=== PATIENT | female | born 1950 | race African-American/Black ===

== ENCOUNTER 2021-07-02 14:59 | Emergency (ER) | payer MEDICARE, SELFPAY ==
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
[2021-07-02 15:43] VITALS: BP 138/78; PULSE 99; RESP 18; TEMP 36.3; O2SAT 98
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
[2021-07-02 17:14] VITALS: BP 121/78; PULSE 86; RESP 12; O2SAT 98
[2021-07-02 17:24] VITALS: BP 121/78; PULSE 77; RESP 12; O2SAT 98
[2021-07-02] MEDS: ACETAMINOPHEN 500 MG TABLET 1000 MG PO (17:31)
== END 2021-07-02 17:40 | disposition home or self-care (01) ==
LOC: ANHED 17:32
PROVIDERS: Emergency Provider Emergency Medicine; PCP Emergency Medicine
DX: R42 Dizziness and giddiness (principal); S16.1XXA Strain of muscle, fascia and tendon at neck level, initial encounter; S39.92XA Unspecified injury of lower back, initial encounter; M47.816 Spondylosis without myelopathy or radiculopathy, lumbar region; V49.40XA Driver injured in collision with unspecified motor vehicles in traffic accident, initial encounter
CPT/HCPCS: 70450; 71046; 72100; 72125; 99284; A9270

== ENCOUNTER 2021-07-24 11:59 | Emergency (ER) | payer OTHER, SELFPAY ==
[2021-07-24] VITALS (9 sets, daily range): BP systolic 128–145; BP diastolic 84–92; PULSE 62–87; RESP 13–24; TEMP 36.7; O2SAT 94–100
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
--- NOTE | ~2021-07-24 | CT_ITS ---
EXAMINATION: CT abdomen pelvis w con DATE: 07/24/2021 15:05 INDICATION: Left abdominal pain and bloating TECHNIQUE: Computed tomography (CT) of the abdomen and pelvis was performed with 100 cc Omnipaque 350 intravenous contrast. The dose-length product was 1216.74 mGy-cm. Automated exposure control and ite rative reconstruction technique were employed. COMPARISON: None. FINDINGS: Lung bases are unremarkable. Heart size is normal. No significant pleural or pericardial ef fusion. Small hiatal hernia. No significant vascular abnormality. No lymphadenopathy. There uterine f ibroids with probable mild endometrial thickening. No abnormal pelvic masses or fluid collections. No nobstructive bowel gas pattern. There are bilateral renal cysts. There are patchy areas of hypoperfusion of the kidneys. Cannot exclu de early pyelonephritis. Clinically correlate. Fatty infiltration with cholecystectomy clips. The spl een, pancreas, adrenal glands are unremarkable. There is layering milk of calcium and a left upper po le renal cyst. No free air or free fluid. No focal lytic or blastic lesions. Mild lumbar spondylosis. Symmetric osteoarthritis of the hips. IMPRESSION: 1. Patchy hypoperfusion of the kidneys, suspicious for early pyelonephritis. Clinically correlate. 2: Probable mild endometrial thickening. Multiple uterine fibroids. Consider correlation with ultraso und on a nonemergent basis. Reviewed, dictated and finalized at location A. ERN PAINTER IMPRESSION: 1. Patchy hypoperfusion of the kidneys, suspicious for early pyelonephritis. Cl inically correlate. 2: Probable mild endometrial thickening. Multiple uterine fibroids. Consider co rrelation with ultrasound on a nonemergent basis.
--- NOTE | 2021-07-24 13:29 | PC.NURSE ---
Dr. Valenzuela at bedside for pt assessment.
--- NOTE | 2021-07-24 13:37 | ECG_ITS ---
Measurements Intervals Home Rate: 65 P: 41 IL: 196 QRS: -11 QRSD: 99 T: 28 QT: 396 QTc: 412 Interpretive Statements SINUS RHYTHM NORMAL ECG Electronically Signed On 07-24-2021 14:09:21 INSOLE ROUNDER by Earl Padilla D.O.
[2021-07-24 14:02] LABS: Basophils Absolute Auto 0.1 K/mm3 (0.0-0.1); Basophils Percent Auto 0.9 % (0.2-1.2); Eosinophils Absolute Auto 0.2 K/mm3 (0-0.3); Eosinophils Percent Auto 2.2 % (0-4.4); Hematocrit 38.2 % (37.0-47.0); Hemoglobin 12.7 g/dL (12.0-15.0); Immature Granulocyte Absolute 0.01 K/mm3 (0.00-0.031); Immature Granulocyte Percent A 0.1 % (0-0.5); Lymphocytes Absolute Auto 3.63 K/mm3 (0.9-3.2); Lymphocytes Percent Auto 53.9 % (18.3-44.2); Mean Corpuscular HGB Conc 33.2 g/dl (32-36); Mean Corpuscular Hemoglobin 30.3 pg (26-34); Mean Corpuscular Volume 91.2 fl (80-100); Monocytes Absolute Auto 0.4 K/mm3 (0.1-0.6); Monocytes Percent Auto 6.1 % (2.6-8.5); Neutrophils Absolute Auto 2.5 K/mm3 (1.3-6.7); Neutrophils Percent Auto 36.8 % (45.5-73.1); Platelet Count Result 231 k/mm3 (150-375); Red Blood Count 4.19 M/mm3 (4.2-5.4); Red Cell Distribution Width 13.1 % (11.5-14.5); White Blood Count 6.7 K/mm3 (4.5-10.0)
[2021-07-24 14:08] LABS: Add Urine Microscopic? YES; Appearance Urine Clear (Clear); Bilirubin Urine Negative (Negative); Blood Urine Negative (Negative); Color Urine Straw (Yellow); Glucose Urine UA Negative (Negative); Ketones Urine Negative (Negative); Leukocyte Esterase Ur Trace LEU/UL (Negative); Mucus Urine Rare /lpf; Nitrate Urine Negative (Negative); Protein Urine Negative (Negative); RBC Urine 0-2 /hpf (0-2); Specific Grav Ur 1.008 (1.001-1.035); Urobilinogen Urine Negative mg/dL (<2.0)
[2021-07-24 14:11] LABS: Prothrombin Time 13.5 Seconds (11.1-14.7)
[2021-07-24 14:12] LABS: Partial Thromboplastin Time 27.6 SECONDS (22.3-36.8)
[2021-07-24 14:14] LABS: D Dimer 0.47 ug/mL (<0.48)
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
[2021-07-24 14:41] LABS: Alanine Aminotransferase 18 U/L (4-35); Albumin Level 4.6 g/dL (3.5-5.1); Alkaline Phosphatase 181 U/L (38-126); Anion Gap 5 mmol/L (8-16); Aspartate Amino Transferase 27 U/L (14-36); Bilirubin,Total 0.3 mg/dL (0.2-1.3); Blood Urea Nitrogen 7 mg/dL (7-17); Carbon Dioxide 29 mmol/L (22-30); Chloride 104 mmol/L (98-107); Estimated CRCL calculation 65 ml/min; Estimated Glomerular Filt Rate > 60; Glucose 91 mg/dL (65-110); Lipase 60 U/L (23-300); Potassium 3.7 mmol/L (3.4-5.0); Sodium 138 mmol/L (137-145)
--- NOTE | 2021-07-24 14:58 | PC.NURSE ---
Pt to CT.
--- NOTE | 2021-07-24 14:58 | PC.NURSE ---
Pt to CT.
--- NOTE | 2021-07-24 15:16 | PC.NURSE ---
Dr. Valenzuela at bedside to discuss results and treatment plan with pt.
== END 2021-07-24 15:36 | disposition home or self-care (01) ==
PROVIDERS: Emergency Provider General Practice; PCP Emergency Medicine
DX: N12 Tubulo-interstitial nephritis, not specified as acute or chronic (principal); R93.89 Abnormal findings on diagnostic imaging of other specified body structures; M54.9 Dorsalgia, unspecified
CPT/HCPCS: 36415; 71046; 74177; 80053; 81001; 83690; 83735; 85025; 85380; 85610; 85730; 87086; 93005; 99284; Q9967

== ENCOUNTER 2021-10-20 13:08 | Outpatient (CLI) | payer OTHER, SELFPAY ==
[2021-10-20 14:24] LABS: Hemoglobin 12.7 g/dL (12.0-15.0); Mean Corpuscular HGB Conc 32.6 g/dl (32-36); Mean Platelet Volume 12.2 fl (7.4-10.4); Platelet Count Result 236 k/mm3 (150-375); Red Blood Count 4.24 M/mm3 (4.2-5.4); Red Cell Distribution Width 13.3 % (11.5-14.5); White Blood Count 6.5 K/mm3 (4.5-10.0)
== END 2021-10-20 13:09 | disposition home or self-care (01) ==
PROVIDERS: Visit Provider Student in an Organized Health Care Education/Training Program
DX: Z01.818 Encounter for other preprocedural examination (principal); N85.2 Hypertrophy of uterus
CPT/HCPCS: 36415; 85027; 86850; 86900; 86901

== ENCOUNTER 2021-10-23 02:42 | Day surgery (SDC) | payer OTHER, SELFPAY ==
--- NOTE | 2021-10-17 09:51 | PC.NURSE ---
Report to the Outpatient Waiting Room, entrance under the green pavilion located off [facility], at time __1230 on date __10/23/21 . OR Time: _2:30 PM . - You and your visitor will be asked a series of questions to screen for COVID 19 for your protection. - A mask is required within the hospital. Preoperative COVID Testing Requirements: No COVID Test needed if: (proof is required; if not received patient will have Rapid Test prior to entry) - Patient has received COVID Vaccine at least 14 days prior to procedure date or - Patient has positive COVID test result within last 90 days of surgery date. COVID Test needed if above criteria is not met If not COVID vaccinated a COVID test must be conducted within 72 hours of surgery and patient is asked to isolate self from time of testing until procedure. You will go to the [facility] for your COVID testing. The [employer] [facility] site is located at the corner of [address] [facility]. You will only be called if COVID results are positive and your surgeon may reschedule your elective surgery date. Patients may have clear liquids (water, carbonated beverages, clear teas, apple juice) until 3 hours prior to surgery with a maximum of 20 ounces. - No food from midnight until time of surgery Take the following medications with a SIP of water the morning of surgery: _NONE Medications to discontinue per physician ALL VITAMINS AND SUPPLEMENTS 3 DAYS PRE OP Date to take last dose___10/19/21 Please no make-up, nail icelandic, hairspray, perfume, deodorant, or body powder the day of surgery. No jewelry (including any body piercings) or valuables the day of surgery, leave them at home. Please take a shower or bath the night before, or the morning of, surgery with an antibacterial soap. Wear comfortable, loose fitting clothing. Children are encouraged to wear pajamas. - Jewelry must be removed prior to entering the operating room. Rings and piercings that are not removed may be cut off. - The hospital will not accept responsibility for valuables. - Please leave all valuables, including medications, at home the day of surgery. If you are going home after surgery, a licensed screw driver operator must drive you home. - NO public transportation without another adult. - We recommend that an adult stay with you for 24 hours following discharge. - We also recommend that you do not drive, make important decision, drink alcoholic beverages, or take any drugs that were not prescribed by your health care provider for at least 24 hours after your discharge time. One visitor will be allowed to accompany the patient into the hospital. Patients visitor will be instructed to remain with patient at all times or leave the building. We will allow the visitor to come back to the postoperative area when patient is ready. Follow any additional instructions given to you from your surgeon. Telephone instructions given to __PATIENT and asked if any additional questions and then verbalized understanding. Patient advised to call surgeon office or pre surgery nurse liaison [phone] if any additional questions.
[2021-10-17 10:02] VITALS: BMI 37.9
--- NOTE | 2021-10-22 16:23 | PM.IMHP ---
H&P: HPI History of Present Illness Date/Time: 10/22/21 16:23 Chief Complaint: uterine fibroids postmenopausal bleeding Narrative: 70 yo F who presents for robotic TLH/BSO for uterine fibroids. Pt initially presented to the ED for an episode of dizziness. Pt ahd a CT scan which had an incidental finding of uterine fibroids. Upon questioning pt did reports some postmenopausal spotting and abdominal fullness, bloating and pressure. Pt elects for surgical management of uterine fibroids. Review of Systems Cardiovascular: Cardiovascular: Denies chest pain, Denies leg edema, Denies palpitations, Denies dyspnea and Denies dyspnea on exertion Respiratory: Respiratory: Denies cough, Denies dyspnea and Denies dyspnea on exertion Gastrointestinal: Gastrointestinal: Denies abdominal pain, Denies constipation, Denies diarrhea, Denies nausea and Denies vomiting Genitourinary: Genitourinary: Denies hematuria, Denies urinary frequency, Denies dysuria, Denies pelvic pain, Denies urinary incontinence and Denies vaginal discharge Neurologic: Reports system reviewed and no additional complaints, except as documented Psychiatric: Psychiatric: Reports no additional psychiatric complaints Endocrine: Endocrine: Denies palpitations PMFSH Past Medical History Medical History (Updated 10/22/21 @ 16:26 by Mick Tavarez MD) Patient denies significant medical history Surgical History Surgical History (Updated 07/24/21 @ 14:25 by Morelia Valenzuela MD) Hx of cholecystectomy Social History Social History (Updated 07/02/21 @ 16:50 by Jean Cornelius DO) Smoking status: Never smoker Spiritual care concerns: No Meds Home Medications and Allergies Home Medications Medication Instructions Recorded Confirmed Type Lacto.acidophilus-Bif.animalis 1 cap PO DAILY 10/17/21 10/17/21 History [Daily Probiotic] acetaminophen [Tylenol Extra 500 mg PO Q6H PRN 10/17/21 10/17/21 History Strength] cholecalciferol (vitamin D3) 1,250 mcg PO WEEKLY 10/17/21 10/17/21 History naproxen 500 mg PO PRN PRN 10/17/21 10/17/21 History simvastatin 20 mg PO HS 10/17/21 10/17/21 History Allergies Allergy/AdvReac Type Severity Reaction Status Date / Time Penicillins AdvReac Anaphylaxis Verified 10/17/21 09:36 Exam Const: General: no acute distress Eyes: EOM: EOMs intact bilaterally Neck: Neck: supple Thyroid: thyroid normal Chest: Breast/axilla inspection: normal inspection of the breasts Breast/axilla palpation: normal palpation of the breasts, normal palpation of the axillae and no axillary lymphadenopathy Resp: Effort & Inspection: normal respiratory effort Auscultation: clear to auscultation bilaterally Cardio: Rate: regular rate Rhythm: regular rhythm GI: Inspection: non-distended GI Palp: Yes Soft to palpation, No Tenderness to palpation present (GI) and No Guarding due to palpation present (GI) Auscultation: normal bowel sounds : General: No bladder normal to palpation External Female Exam: normal external appearance Speculum Exam - Vagina: normal vaginal discharge and No vaginal bleeding Speculum Exam - Cervix: nontender Bimanual exam- vagina & uterus: No bladder normal to palpation and No Cervical tenderness present OB/external & speculum: No vaginal bleeding Skin: General skin exam: normal color and no rashes or lesions noted Neuro: Cognition (Neuro): normal cognition Speech: normal speech Extrem: General: normal to inspection and no edema Psych: Mental Status: mental status grossly normal Affect: normal affect Assessment and Plan Assessment and plan (1) Uterine fibroid: Code(s): D25.9 - Leiomyoma of uterus, unspecified Status: Acute Assessment and Plan: incidental finding on CT pt does reports some postmenopausal spotting EMB negative for malignancy CT and pelvic US show enlarged uterus measuring 10.1x7.6x7.3 cm multiple uterine fibroids, largest measuring 4 cm pt denies medical
[2021-10-23] VITALS (8 sets, daily range): BP systolic 92–147; BP diastolic 53–96; PULSE 65–84; RESP 12–20; TEMP 36.1–36.3; O2SAT 97–100
--- NOTE | 2021-10-23 08:45 | WPDHPUPDATE1 ---
History and Physical Update Update Date/Time: 10/23/21 08:45 History and Physical has been reviewed, including an updated exam of the patient. There are NO changes in the patient's condition. Risks, benefits, and alternatives have been discussed and questions answered. Patient agrees to proceed with procedure.
[2021-10-23] MEDS: LACTATED RINGERS 1,000 ML 30 ML IV CONT ×2 (12:58→16:21)
[2021-10-23] MEDS: KETOROLAC 15 MG/ML VIAL (*BKC) IV PUSH (13:00)
[2021-10-23] MEDS: ACETAMINOPHEN 500 MG TABLET 1000 MG PO (13:01)
--- NOTE | 2021-10-23 13:03 | P.PNAN_ITS ---
Anes - Initial Pre Proc Eval Procedure: Operation Date: 10/23/21 14:30 Proposed Procedures p Robotic Assisted Total Vaginal Hysterectomy, Bilateral Salpingo-Oophorectomy - Mick Tavarez MD Date/Time: 10/23/21 13:03 Surgeon: Mick Tavarez MD Pre Op Diagnosis: enlarged Uteus,Fibroids,Pain,Post Menopausal Bleed Patient Data Age: 71 Gender: F Height: 1.68 m Weight: 105.4 kg Last Vital Signs Temp 36.3 C L 10/23/21 12:28 Pulse 84 10/23/21 12:28 Resp 18 10/23/21 12:28 BP 124/72 10/23/21 12:28 Pulse Ox 100 10/23/21 12:28 Allergies Allergy/AdvReac Type Severity Reaction Status Date / Time Penicillins AdvReac Anaphylaxis Verified 10/23/21 12:39 Home Medications Medication Instructions Recorded Confirmed Type Lacto.acidophilus-Bif.animalis 1 cap PO DAILY 10/17/21 10/23/21 History [Daily Probiotic] acetaminophen [Tylenol Extra 500 mg PO Q6H PRN 10/17/21 10/23/21 History Strength] cholecalciferol (vitamin D3) 1,250 mcg PO WEEKLY 10/17/21 10/23/21 History naproxen 500 mg PO PRN PRN 10/17/21 10/23/21 History simvastatin 20 mg PO HS 10/17/21 10/23/21 History clotrimazole 1 applic TOPICAL BID 10/23/21 10/23/21 History Patient hx anesthesia problems: none Family hx anesthesia problems: none Results Review: All pre-operative results and documents have been reviewed as part of the pre-operative evaluation. [facility] Past Medical History Medical History (Updated 10/23/21 @ 13:07 by Sammy Donis MD) Hyperlipidemia Obesity Patient denies significant medical history Surgical History Surgical History (Updated 10/23/21 @ 13:07 by Sammy Donis MD) H/O laparoscopy Hx of cholecystectomy Social History Social History Smoking status: Never smoker Living arrangements: alone Spiritual care concerns: No Anes - Eval Final PreProcedure Day of Procedure 10/23/21 13:03 Patient weight: obese Lungs: clear to auscultation Airway: Mallampati scale class II Neurological: alert and oriented Last oral intake: >/= 8 hours ASA classification: II Emergent: no Anesthetic plan: proceed Anesthesia type and monitoring: general ETT and standard monitoring Results Review: All pre-operative results and documents have been reviewed as part of the pre-operative evaluation. Informed Consent: The patient's anesthetic plan and its attendant risks and benefits were discussed with the patient/family/POA. Questions were solicited and answers provided to the satisfaction of the patient/family/POA.
[2021-10-23] MEDS: ceFAZolin 2 GM/D5W 50 ML 2 GM/50 ML BAG IVPB (13:47)
[2021-10-23] MEDS: LIDO 1%/EPINEPHRINE 1:100,000 50 ML VIAL INFILTRATE (14:57)
[2021-10-23] MEDS: METHYLENE BLUE 0.5% INJ 10 ML AMPULE 5 ML IRRIGATION (15:45)
--- NOTE | 2021-10-23 16:17 | W.PM.PROC2 ---
Procedure Note - Detailed Date of Procedure 10/23/21 Pre-op Diagnosis enlarged Uteus,Fibroids,Pain,Post Menopausal Bleed Post-op Diagnosis Same Procedure Performed robotic assisted total laparoscopic hysterectomy and bilateral salpingo-oophorectomy, cystoscopy Surgeon Mick Tavarez MD Anesthesia General Findings umbilical hernia with omental adhesions, omental adhesions to the left pelvic side wall, enlarged fibroid uterus Description of Procedure After the patient was appropriately consented she was taken to the operating room where she was transferred to the table in a dorsal supine position. General anesthesia was then induced with endotracheal intubation. The patient was transferred to a dorsal lithotomy position using adjustable yellow-fin stirrups. Her position was adjusted for appropriate support of her lower back and lower extremities. The patient was prepped and draped. A transurethral sales catheter was place. The cervix was sequentially dilated and a RUI uterine manipulator placed in typical fashion about a 3.5 cm CHAPINCITO ring. Gloves were changed. After confirmation of a functioning orogastric tube, lidocaine was injected at Harvey's point in the LUQ and a 5mm incision was made. A 5mm Optiview trocar was then inserted into the abdominal cavity under direct visualization and done so without complication. The abdomen was then insufflated with approximately 2-3L of CO2 establishing a pneumoperitoneum and the patient was placed in Trendelenburg position. Abdominal survey was performed. An umbilical hernia was appreciated with omental adhesions noted at the umbilicus. These adhesions were taken down with laparoscopic scissors. Just above the umbilicus in the midline, a 8 mm incision made after injection of lidocaine and a 8 mm bladeless trocar advanced into the abdominal cavity under direct visualization without incident. We subsequently placed two robotic ports in a similar fashion, one in the left mid-quadrant and one in the right, 10cm lateral to the midline port. The robot was then docked. The left round ligament was divided and the pararectal and paravesicle spaces developed. The course of the ureter on the left side was difficult to identify due to omental adhesions to the pelvic side wall and the mass effect of the uterine fibroid. The infundibulopelvic ligaments were skeletonized, triply coagulated and then transected with monopolar brigitte away from the course of the ureter. The posterior aspect of the broad ligament was then skeletonized down to the level of the internal cervical os, mobilizing the ureter laterally. The bladder flap was then created sharply. The ipsilateral uterine artery was skeletonized, bipolar cauterized and transected. A similar procedure was performed on the contralateral side, developing the pelvic spaces, coagulating and dividing the IP away from the ureter, completing the bladder flap, and skeletonizing, ligating, and dividing the uterine artery on this side. We ensured the vaginal pneumo-occluder balloon was insufflated and made a circumferential colpotomy using monopolar current. The uterus with fibroid was too large to remove through the vagina. The uterus was then bivalved laparoscopically with monopolar scissors. The uterus, cervix, bilateral tubes and ovaries were then delivered transvaginally. I then placed a single suture of 0-vicryl to secure the left apex of the vaginal cuff. I then re-approximated the colpotomy with a running #1 PDO Quill suture in 2 layers. Following this dissection, the abdomen and pelvis were copiously irrigated and all surgical sites. Hemaderm was placed on the surgical bed. All sites were found to be hemostatic. Skin sites were reapproximated with 4-0 Vicryl in a subcuticular fashion. Steri-Strips were placed. Due to the bulk effect of the uterus and inability to identify the course of the left ureter, I then performed a cystoscopy. Pt was given 1/2 an ampule of methylene blue. Cystosco
[2021-10-23] MEDS: fentaNYL CITRATE INJ (*CRX) 100 MCG/2 ML VIAL 25 MCG IV PUSH ×2 (17:10→17:17)
--- NOTE | 2021-10-23 17:50 | PC.NURSE ---
This patient, Mayda Galvan, was received from PACU per bed to room 289. Patient/family oriented to unit policies and routines
[2021-10-23] MEDS: LACTATED RINGERS 1,000 ML 125 ML IV CONT (18:23)
[2021-10-23] MEDS: KETOROLAC 30 MG/ML VIAL (*BKC) (18:24)
[2021-10-23] MEDS: HYDROcodone/acetaminophen (*CRX) 10-325 MG TABLET 1 TAB PO (19:12)
[2021-10-23] MEDS: SENNA/DOCUSATE SODIUM TABLET 2 TAB PO (21:24)
[2021-10-23] MEDS: SIMVASTATIN 20 MG TABLET PO (21:24)
[2021-10-23] MEDS: MICONAZOLE NITRATE 2% CREAM 30 GM TUBE 1 APPLIC TOPICAL (21:24)
[2021-10-24] MEDS: HYDROcodone/acetaminophen (*CRX) 10-325 MG TABLET 1 TAB PO (00:45)
[2021-10-24] MEDS: IBUPROFEN 600 MG TABLET PO (00:45)
[2021-10-24] MEDS: SIMETHICONE 80 MG TAB.CHEW (02:20)
[2021-10-24 03:55] VITALS: BP 128/65; PULSE 100; RESP 16; TEMP 36.4
[2021-10-24 05:52] LABS: Anion Gap 6 mmol/L (8-16); Blood Urea Nitrogen 10 mg/dL (7-17); Calcium 7.9 mg/dL (8.4-10.2); Carbon Dioxide 26 mmol/L (22-30); Chloride 103 mmol/L (98-107); Estimated CRCL calculation 71 ml/min; Estimated Glomerular Filt Rate > 60; Glucose 130 mg/dL (65-110); Potassium 3.9 mmol/L (3.4-5.0); Sodium 135 mmol/L (137-145)
--- NOTE | 2021-10-24 07:44 | PM.DS ---
DS: Admitting Diagnosis Discharge Date 10/24/21 Admitting Diagnosis abnormal uterine bleeding fibroid uterus DS: Discharge Diagnosis Discharge Diagnosis (1) Uterine fibroid: Code(s): D25.9 - Leiomyoma of uterus, unspecified Status: Acute DS: Summary Hospital Course Hospital Course: Mayda Galvan was admitted after robotic assisted total laparoscopic hysterectomy and bilateral salpingo-oophorectomy for abnormal uterine bleeding secondary to uterine fibroids. The above procedure was performed with no complications. She is doing well post op. She states her pain is well controlled with PO medications. She reports minimal bleeding. She is ambulating up to the chair. Her sales catheter was removed. She is tolerating PO without N/V. She reports passing flatus. Status at Discharge Overall status at discharge: patient is progressing back to baseline Time Spent with Patient Time attestation: Total time spent providing and/or coordinating discharge services: Time spent: Less than 30 minutes Exam Const: General: comfortable and no acute distress Limitations: no limitations Resp: Effort & Inspection: normal respiratory effort Auscultation: clear to auscultation bilaterally Cardio: Rate: regular rate Rhythm: regular rhythm GI: Inspection: non-distended GI Palp: Yes Soft to palpation, Yes Tenderness to palpation present (GI) (milder tenderness to deep palpation) and No Guarding due to palpation present (GI) Auscultation: normal bowel sounds Other: incisions C/D/I covered with dermabond Urinary Catheter: Urinary Catheter: urine clear Skin: General skin exam: normal color Extrem: General: normal to inspection Psych: Mental Status: mental status grossly normal Affect: normal affect DS: Data Data Completed and Pending Pending studies at discharge: Pending at discharge 10/23/21 14:59 Surgical [PTH] Routine Labs on day of discharge: Labs from last 24 hours 10/24/21 10/24/21 03:47 03:47 WBC Pending RBC Pending Hgb Pending Hct Pending MCV Pending MCH Pending MCHC Pending RDW Pending Plt Count Pending MPV Pending Immature Gran % (Auto) Pending Neut % (Auto) Pending Lymph % (Auto) Pending Mcduffie % (Auto) Pending Eos % (Auto) Pending Baso % (Auto) Pending Lymph # (Auto) Pending Mcduffie # (Auto) Pending Eos # (Auto) Pending Baso # (Auto) Pending Abs Immat Gran (auto) Pending Absolute Neuts (auto) Pending Absolute Nucleated RBC Pending Nucleated RBC % Pending Sodium 135 L Potassium 3.9 Chloride 103 Carbon Dioxide 26 Anion Gap 6 L BUN 10 Creatinine 0.80 Estim Creat Clear Calc 71 Estimated GFR > 60 Glucose 130 H Calcium 7.9 L Discharge Plan Discharge Patient Disposition: Home, Self-Care Patient Instructions: Laparoscopic Hysterectomy (DC) Follow-up/Referrals: Mick Tavarez MD [Physician] - 2 Weeks Discharge Medications: New oxycodone-acetaminophen 5-325 mg tablet 1 tablet PO Q6H PRN (Reason: pain) Qty: 30 RF: 0 Continued simvastatin 20 mg tablet 20 mg PO HS RF: 0 naproxen 500 mg tablet 500 mg PO PRN PRN (Reason: Pain) RF: 0 acetaminophen 500 mg Capsule 500 mg PO Q6H PRN (Reason: Pain) RF: 0 Daily Probiotic 2.5 billion cell Capsule 1 cap PO DAILY RF: 0 cholecalciferol (vitamin D3) 1,250 mcg (50,000 unit) Tablet 1,250 mcg PO WEEKLY RF: 0 clotrimazole 1 % cream 1 applic TOPICAL BID RF: 0
[2021-10-24 07:50] LABS: Basophils Percent Auto 0.2 % (0.2-1.2); Hematocrit 34.1 % (37.0-47.0); Hemoglobin 11.5 g/dL (12.0-15.0); Immature Granulocyte Absolute 0.02 K/mm3 (0.00-0.031); Immature Granulocyte Percent A 0.2 % (0-0.5); Lymphocytes Absolute Auto 1.95 K/mm3 (0.9-3.2); Lymphocytes Percent Auto 20.2 % (18.3-44.2); Mean Corpuscular HGB Conc 33.7 g/dl (32-36); Mean Platelet Volume 11.9 fl (7.4-10.4); Monocytes Absolute Auto 0.5 K/mm3 (0.1-0.6); Monocytes Percent Auto 4.7 % (2.6-8.5); Neutrophils Absolute Auto 7.2 K/mm3 (1.3-6.7); Neutrophils Percent Auto 74.7 % (45.5-73.1); Platelet Count Result 275 k/mm3 (150-375); Red Blood Count 3.83 M/mm3 (4.2-5.4); Red Cell Distribution Width 13.4 % (11.5-14.5); White Blood Count 9.6 K/mm3 (4.5-10.0)
[2021-10-24 08:30] VITALS: BP 119/50; PULSE 82; RESP 18; TEMP 36.3; O2SAT 100
--- NOTE | 2021-10-24 11:13 | P.PNAN_ITS ---
Anes - Prog Note Post-Op Date/Time: 10/24/21 11:13 Cardiovascular status: normal Respiratory status: normal Airway patency: baseline Mental status: baseline Post-Op hydration status: normal Vital Signs: Last Vital Signs Temp 36.3 C L 10/24/21 08:30 Pulse 82 10/24/21 08:30 Resp 18 10/24/21 08:30 BP 119/50 L 10/24/21 08:30 Pulse Ox 100 10/24/21 08:30 Pain Score (VAS): 3 I/O: Intake & Output 10/23/21 10/24/21 10/24/21 23:59 07:59 15:59 Intake Total 300 2000 Output Total 2000 350 Balance 300 0 -350 Laboratory Tests 10/24/21 03:47 10/24/21 03:47 10/24/21 10/24/21 03:47 03:47 WBC 9.6 RBC 3.83 L Hgb 11.5 L Hct 34.1 L MCV 89.0 MCH 30.0 MCHC 33.7 RDW 13.4 Plt Count 275 MPV 11.9 H Immature Gran % (Auto) 0.2 Neut % (Auto) 74.7 H Lymph % (Auto) 20.2 Fajardo % (Auto) 4.7 Eos % (Auto) 0.0 Baso % (Auto) 0.2 Lymph # (Auto) 1.95 Fajardo # (Auto) 0.5 Eos # (Auto) 0.0 Baso # (Auto) 0.0 Abs Immat Gran (auto) 0.02 Absolute Neuts (auto) 7.2 H Absolute Nucleated RBC 0.0 Nucleated RBC % 0.0 Sodium 135 L Potassium 3.9 Chloride 103 Carbon Dioxide 26 Anion Gap 6 L BUN 10 Creatinine 0.80 Estim Creat Clear Calc 71 Estimated GFR > 60 Glucose 130 H Calcium 7.9 L Post-procedural complaints: none Patient Feedback: Patient satisfied with anesthetic care.
== END 2021-10-24 11:17 | disposition home or self-care (01) ==
LOC: ANHSURGERY 12:19 → ANHOB2 17:39
PROVIDERS: PCP Internal Medicine; Visit Provider Student in an Organized Health Care Education/Training Program
PROC: (CPT 58573; principal; 2021-10-23 14:30)
DX: D25.2 Subserosal leiomyoma of uterus (principal); N80.0 Endometriosis of uterus; D25.1 Intramural leiomyoma of uterus; D25.0 Submucous leiomyoma of uterus; N99.71 Accidental puncture and laceration of a genitourinary system organ or structure during a genitourinary system procedure; N92.4 Excessive bleeding in the premenopausal period; R10.12 Left upper quadrant pain; K42.9 Umbilical hernia without obstruction or gangrene; N84.0 Polyp of corpus uteri; N73.6 Female pelvic peritoneal adhesions (postinfective); E78.5 Hyperlipidemia, unspecified; E66.9 Obesity, unspecified; Z68.37 Body mass index [BMI] 37.0-37.9, adult; Z90.49 Acquired absence of other specified parts of digestive tract
CPT/HCPCS: 58573; 57200; S2900; 36415; 80048; 85025; 88307; 99199; A9270; J0690; J1100; J1170; J1885; J2250; J2370; J2405; J2704; J2710; J3010; J7030; J7120; Q9968

== ENCOUNTER 2022-06-02 11:45 | Outpatient (CLI) | payer MEDICARE, SELFPAY ==
[2022-06-02 19:35] LABS: Basophils Absolute Auto 0.1 K/mm3 (0.0-0.1); Basophils Percent Auto 1.1 % (0.2-1.2); Eosinophils Absolute Auto 0.1 K/mm3 (0-0.3); Hemoglobin 12.9 g/dL (12.0-15.0); Lymphocytes Absolute Auto 2.52 K/mm3 (0.9-3.2); Lymphocytes Percent Auto 46.1 % (18.3-44.2); Mean Corpuscular HGB Conc 32.3 g/dl (32-36); Mean Corpuscular Hemoglobin 29.8 pg (26-34); Mean Corpuscular Volume 92.4 fl (80-100); Mean Platelet Volume 11.4 fl (7.4-10.4); Monocytes Absolute Auto 0.4 K/mm3 (0.1-0.6); Monocytes Percent Auto 6.6 % (2.6-8.5); Neutrophils Absolute Auto 2.4 K/mm3 (1.3-6.7); Neutrophils Percent Auto 44.2 % (45.5-73.1); Platelet Count Result 264 k/mm3 (150-375); Red Blood Count 4.33 M/mm3 (4.2-5.4); Red Cell Distribution Width 13.2 % (11.5-14.5); White Blood Count 5.5 K/mm3 (4.5-10.0)
[2022-06-02 19:57] LABS: Alanine Aminotransferase 23 U/L (6-35); Albumin Level 4.6 g/dL (3.5-5.1); Alkaline Phosphatase 162 U/L (38-126); Anion Gap 12 mmol/L (8-16); Aspartate Amino Transferase 33 U/L (14-36); Bilirubin,Total 0.4 mg/dL (0.2-1.3); Blood Urea Nitrogen 10 mg/dL (7-17); Carbon Dioxide 26 mmol/L (22-30); Chloride 105 mmol/L (98-107); Cholesterol 185 mg/dL (0-200); Estimated Glomerular Filt Rate > 60; Glucose 98 mg/dL (65-110); HDL Direct 46 mg/dL; Sodium 143 mmol/L (137-145); Triglycerides 113 mg/dL (<150)
[2022-06-02 20:08] LABS: LDL Cholesterol Direct 95 mg/dL
[2022-06-02 21:13] LABS: Vitamin D 25 Hydroxy 36.5 ng/mL
[2022-06-02 22:03] LABS: Hemoglobin A1C 6.3 % (<5.7)
== END 2022-06-02 11:46 | disposition home or self-care (01) ==
LOC: ANHGOSHLAB 11:47
PROVIDERS: PCP Family Medicine; Visit Provider Family Medicine
DX: E11.9 Type 2 diabetes mellitus without complications (principal); E53.8 Deficiency of other specified B group vitamins; Z13.29 Encounter for screening for other suspected endocrine disorder; E78.5 Hyperlipidemia, unspecified; E55.9 Vitamin D deficiency, unspecified; Z79.899 Other long term (current) drug therapy; I10 Essential (primary) hypertension
CPT/HCPCS: 36415; 80053; 80061; 82306; 82607; 83036; 84443; 85025

== ENCOUNTER 2023-04-30 11:51 | Outpatient (CLI) | payer MEDICARE, SELFPAY ==
[2023-04-30 17:09] LABS: Basophils Absolute Auto 0.1 K/mm3 (0.0-0.1); Basophils Percent Auto 1.2 % (0.2-1.2); Eosinophils Absolute Auto 0.1 K/mm3 (0-0.3); Eosinophils Percent Auto 1.6 % (0-4.4); Hematocrit 37.7 % (37.0-47.0); Hemoglobin 12.4 g/dL (12.0-15.0); Immature Granulocyte Absolute 0.01 K/mm3 (0.00-0.031); Immature Granulocyte Percent A 0.2 % (0-0.5); Lymphocytes Absolute Auto 2.73 K/mm3 (0.9-3.2); Lymphocytes Percent Auto 44.9 % (18.3-44.2); Mean Corpuscular HGB Conc 32.9 g/dl (32-36); Mean Corpuscular Hemoglobin 29.6 pg (26-34); Mean Platelet Volume 11.3 fl (7.4-10.4); Monocytes Absolute Auto 0.4 K/mm3 (0.1-0.6); Monocytes Percent Auto 6.9 % (2.6-8.5); Neutrophils Absolute Auto 2.8 K/mm3 (1.3-6.7); Neutrophils Percent Auto 45.2 % (45.5-73.1); Platelet Count Result 260 k/mm3 (150-375); Red Blood Count 4.19 M/mm3 (4.2-5.4); Red Cell Distribution Width 13.4 % (11.5-14.5); White Blood Count 6.1 K/mm3 (4.5-10.0)
[2023-04-30 17:22] LABS: Alanine Aminotransferase 20 U/L (6-35); Albumin Level 4.3 g/dL (3.5-5.1); Alkaline Phosphatase 151 U/L (38-126); Anion Gap 6 mmol/L (8-16); Aspartate Amino Transferase 27 U/L (14-36); Bilirubin,Total 0.6 mg/dL (0.2-1.3); Blood Urea Nitrogen 13 mg/dL (7-17); Calcium 9.1 mg/dL (8.4-10.2); Carbon Dioxide 32 mmol/L (22-30); Chloride 104 mmol/L (98-107); Cholesterol 256 mg/dL (0-200); Estimated Glomerular Filt Rate > 60; Glucose 90 mg/dL (65-110); HDL Direct 46 mg/dL; Potassium 4.4 mmol/L (3.4-5.0); Sodium 142 mmol/L (137-145); Triglycerides 98 mg/dL (<150)
[2023-04-30 17:34] LABS: LDL Cholesterol Direct 146 mg/dL
[2023-04-30 18:13] LABS: Hemoglobin A1C 5.9 % (<5.7)
[2023-05-04 11:46] LABS: Vitamin D 1,25 (OH)2 Total 48 pg/mL (18-72); Vitamin D2 1,25 (OH)2 <8 pg/mL; Vitamin D3 1,25 (OH)2 48 pg/mL
== END 2023-04-30 11:52 | disposition home or self-care (01) ==
LOC: ANHGOSHLAB 11:52
PROVIDERS: PCP Family Medicine; Visit Provider Nurse Practitioner Family
DX: E55.9 Vitamin D deficiency, unspecified (principal); E11.9 Type 2 diabetes mellitus without complications; E78.5 Hyperlipidemia, unspecified
CPT/HCPCS: 36415; 80053; 80061; 82652; 83036; 85025

== ENCOUNTER → 2023-04-30 12:03 | Outpatient (CLI) | payer MEDICARE, SELFPAY ==
--- NOTE | ~2023-04-30 | XR_ITS ---
EXAMINATION: XR abdomen/kub 1V INDICATION: Constipation TECHNIQUE: Supine views of the abdomen were obtained on 2 radiographs. COMPARISON: None FINDINGS: The bowel gas pattern is normal. There is an expected volume of colonic stool. No dilated l oops of bowel are evident. Cholecystectomy clips are noted. The visualized lung bases are clear. 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 IMPRESSION: 1. . No radiographic correlate for the patient's symptoms. Reviewed, dictated and finalized at location B.
== END ==
PROVIDERS: PCP Nurse Practitioner Family; Visit Provider Nurse Practitioner Family
DX: K59.00 Constipation, unspecified (principal)
CPT/HCPCS: 74018

== ENCOUNTER 2023-06-21 08:01 | Outpatient (NON) | payer MEDICARE, SELFPAY | END 2023-06-21 08:02 | disposition home or self-care (01) | PROVIDERS: PCP Family Medicine; Visit Provider Internal Medicine Gastroenterology | DX: R19.4 Change in bowel habit (principal); D12.5 Benign neoplasm of sigmoid colon | CPT/HCPCS: 88305 ==

== ENCOUNTER 2023-06-21 09:42 | Day surgery (SDC) | payer MEDICARE, SELFPAY ==
[2023-05-28 11:53] VITALS: BMI 38.6
[2023-06-21 10:35] VITALS: BP 135/92; PULSE 88; RESP 18; TEMP 36.4; O2SAT 100
--- NOTE | 2023-06-21 10:40 | WPDANESEPPF ---
Anes - Initial Pre Proc Eval Procedure: Operation Date: 06/21/23 11:30 Proposed Procedures p Colonoscopy - Martinez Perez MD Date/Time: 06/21/23 10:40 Surgeon: Martinez Perez MD Pre Op Diagnosis: change in bowel habit, other fecal abnormalities, Patient Data Age: 72 Gender: F Height: 1.68 m Weight: 106.3 kg Last Vital Signs Temp 36.4 C 06/21/23 10:35 Pulse 88 06/21/23 10:35 Resp 18 06/21/23 10:35 BP 135/92 H 06/21/23 10:35 Pulse Ox 100 06/21/23 10:35 O2 Del Method Room Air 06/21/23 10:35 Allergies Allergy/AdvReac Type Severity Reaction Status Date / Time Penicillins AdvReac Anaphylaxis Verified 06/21/23 10:31 Home Medications Medication Instructions Recorded Confirmed Type Lactobacillus 1 cap PO DAILY 10/17/21 06/21/23 History acidophilus-Bifidobac.animalis 2.5 billion cell capsule (Daily Probiotic) cholecalciferol (vitamin D3) 50 50 mcg PO DAILY #90 tabs 03/04/22 06/21/23 Rx mcg (2,000 unit) tablet polyethylene glycol 3350 17 17 g PO DAILY #850 grams 04/30/23 06/21/23 Rx gram/dose oral powder (Miralax) simvastatin 20 mg tablet 20 mg PO DAILY #90 tabs 05/03/23 06/21/23 Rx metformin 500 mg tablet,extended 500 mg PO DIRECTED 06/21/23 06/21/23 History release 24 hr Patient hx anesthesia problems: none Family hx anesthesia problems: none Results Review: All pre-operative results and documents have been reviewed as part of the pre-operative evaluation. [facility] Past Medical History Medical History Abnormal stools Change in bowel habits Dyslipidemia Obesity RLQ abdominal pain Type 2 diabetes mellitus without complications Uterine fibroid Vitamin D deficiency Surgical History Surgical History H/O bilateral salpingo-oophorectomy (~1987) H/O laparoscopy H/O: hysterectomy (~10/2021) Hx of cholecystectomy (~04/1989) Family History Family History Father Diabetes mellitus Hypertension Heart disease Sibling Alcoholism Diabetes mellitus Hypertension Heart disease Social History Social History Smoking status: Former smoker Alcohol intake: never Substance use: never Substance use type: does not use Lack of Transportation: No Lack of Food: Never True Current Housing: I Have Housing Concerned About Future Housing: No Difficulty Paying Gas/Electric Bills: No Difficulty Paying for Meds: No Currently Unemployed: No Education: Trade/Vocational Certificate Difficulty w/ Childcare or Family Care: No Living arrangements: alone Additional living arrangements comments: Occupation/Education: retired Gender identity (if verbalized by the patient): Female Sexual Orientation (if Verbalized by the Patient): Straight or Heterosexual Spiritual care concerns: No Agree to blood products: Yes Anes - Eval Final PreProcedure Day of Procedure 06/21/23 10:40 Patient weight: obese Heart: regular rate and rhythm Lungs: clear to auscultation Airway: Mallampati scale class II Neurological: alert and oriented Last oral intake: >/= 8 hours ASA classification: III Emergent: no Anesthetic plan: proceed Anesthesia type and monitoring: general GIVS and standard monitoring Results Review: All pre-operative results and documents have been reviewed as part of the pre-operative evaluation. Informed Consent: The patient's anesthetic plan and its attendant risks and benefits were discussed with the patient/family/POA. Questions were solicited and answers provided to the satisfaction of the patient/family/POA.
[2023-06-21 10:53] LABS: Glucose Point of Care 89 mg/dl (65-105)
[2023-06-21] MEDS: LACTATED RINGERS 1,000 ML 150 ML IV CONT (10:58)
--- NOTE | 2023-06-21 10:59 | SUR.PREOP ---
Pt states during prep yesterday was feeling dizzy/lightheaded. Pt states is diabetic. blood sugar checked, 89. Pt denies dizziness or lightheadedness today. Dr. Harmon notified who states to give pt 500cc bolus in pre-op. 500cc bolus given.
--- NOTE | 2023-06-21 11:16 | WPDHPUPDATE1 ---
History and Physical Update Update Date/Time: 06/21/23 11:16 History and Physical has been reviewed, including an updated exam of the patient. There are NO changes in the patient's condition. Risks, benefits, and alternatives have been discussed and questions answered. Patient agrees to proceed with procedure.
[2023-06-21 11:42] VITALS: BP 91/66; PULSE 71; RESP 16; O2SAT 100
[2023-06-21 11:50] VITALS: BP 113/76; PULSE 66; RESP 16; O2SAT 100
[2023-06-21 12:01] VITALS: BP 126/78; PULSE 75; RESP 16; O2SAT 100
--- NOTE | 2023-06-21 12:20 | WPDANESPN ---
Anes - Prog Note Post-Op Date/Time: 06/21/23 12:20 Cardiovascular status: normal Respiratory status: normal Airway patency: baseline Mental status: baseline Post-Op hydration status: normal Vital Signs: Last Vital Signs Temp 36.4 C 06/21/23 10:35 Pulse 75 06/21/23 12:01 Resp 16 06/21/23 12:01 BP 126/78 06/21/23 12:01 Pulse Ox 100 06/21/23 12:01 O2 Del Method Room Air 06/21/23 12:01 Pain Score (VAS): 0 I/O: Intake & Output 06/20/23 06/21/23 06/21/23 23:59 07:59 15:59 Intake Total 1200 Balance 1200 06/21/23 10:47 POC Capillary Glucose 89 Patient Feedback: Patient satisfied with anesthetic care.
== END 2023-06-21 12:15 | disposition home or self-care (01) ==
PROVIDERS: PCP Family Medicine; Visit Provider Internal Medicine Gastroenterology
PROC: 0DJD8ZZ Inspection of Lower Intestinal Tract, Via Natural or Artificial Opening Endoscopic (ICD-10-PCS; CPT 45378; principal; 2023-06-21 11:30)
DX: Z86.010 Personal history of colon polyps (principal); D12.5 Benign neoplasm of sigmoid colon; K57.30 Diverticulosis of large intestine without perforation or abscess without bleeding; K64.8 Other hemorrhoids
CPT/HCPCS: 45385

== ENCOUNTER 2023-07-13 10:31 | Outpatient (CLI) | payer MEDICARE, SELFPAY ==
[2023-07-13 19:57] LABS: Alanine Aminotransferase 21 U/L (6-35); Albumin Level 4.4 g/dL (3.5-5.1); Alkaline Phosphatase 158 U/L (38-126); Anion Gap 9 mmol/L (8-16); Aspartate Amino Transferase 54 U/L (14-36); Bilirubin,Total 0.5 mg/dL (0.2-1.3); Blood Urea Nitrogen 10 mg/dL (7-17); Carbon Dioxide 30 mmol/L (22-30); Chloride 103 mmol/L (98-107); Cholesterol 170 mg/dL (0-200); Estimated Glomerular Filt Rate > 60; Glucose 79 mg/dL (65-110); HDL Direct 46 mg/dL; Sodium 142 mmol/L (137-145); Triglycerides 118 mg/dL (<150)
[2023-07-13 20:08] LABS: LDL Cholesterol Direct 84 mg/dL
[2023-07-13 20:45] LABS: Basophils Percent Auto 0.8 % (0.2-1.2); Eosinophils Absolute Auto 0.1 K/mm3 (0-0.3); Eosinophils Percent Auto 1.7 % (0-4.4); Hematocrit 38.1 % (37.0-47.0); Hemoglobin 12.1 g/dL (12.0-15.0); Immature Granulocyte Absolute 0.02 K/mm3 (0.00-0.031); Immature Granulocyte Percent A 0.4 % (0-0.5); Lymphocytes Absolute Auto 2.28 K/mm3 (0.9-3.2); Mean Corpuscular HGB Conc 31.8 g/dl (32-36); Mean Corpuscular Hemoglobin 29.1 pg (26-34); Mean Corpuscular Volume 91.6 fl (80-100); Mean Platelet Volume 11.9 fl (7.4-10.4); Monocytes Absolute Auto 0.4 K/mm3 (0.1-0.6); Monocytes Percent Auto 6.8 % (2.6-8.5); Neutrophils Absolute Auto 2.4 K/mm3 (1.3-6.7); Neutrophils Percent Auto 46.3 % (45.5-73.1); Platelet Count Result 271 k/mm3 (150-375); Red Blood Count 4.16 M/mm3 (4.2-5.4); Red Cell Distribution Width 13.4 % (11.5-14.5); White Blood Count 5.2 K/mm3 (4.5-10.0)
[2023-07-13 21:12] LABS: Creatinine Urine 135.9 mg/dL
[2023-07-13 21:15] LABS: Microalbumin Urine Random 10.9 mg/L (0-16.7)
[2023-07-13 21:52] LABS: Hemoglobin A1C 5.9 % (<5.7)
[2023-07-13 22:07] LABS: Vitamin D 25 Hydroxy 26.3 ng/mL
== END 2023-07-13 10:32 | disposition home or self-care (01) ==
PROVIDERS: PCP Family Medicine; Visit Provider Family Medicine
DX: E78.5 Hyperlipidemia, unspecified (principal); I10 Essential (primary) hypertension; E55.9 Vitamin D deficiency, unspecified; E11.9 Type 2 diabetes mellitus without complications; E53.8 Deficiency of other specified B group vitamins; Z79.899 Other long term (current) drug therapy
CPT/HCPCS: 36415; 80053; 80061; 82043; 82306; 82607; 83036; 84443; 85025

== ENCOUNTER 2023-07-13 10:57 | Emergency (ER) | payer MEDICARE, SELFPAY ==
[2023-07-13 11:05] VITALS: BP 138/85; PULSE 81; RESP 16; TEMP 36.5; O2SAT 98
--- NOTE | 2023-07-13 12:25 | ED.GENADULT ---
HPI - General Adult General Chief complaint: Skin/Abscess/Foreign Body Stated complaint: Rash Source: patient Mode of arrival: ambulatory Limitations: no limitations History of Present Illness HPI narrative: Patient presents for evaluation of a pruritic rash to the left thigh this started 4 days ago. No new lotions, soaps, detergents, topical products. Denies any pain in the affected area. Rash is vesicular. She has not had any childhood vaccinations. She is not sure whether she had chickenpox. She is diabetic, on metformin, with controlled blood sugars. She put on a topical itch product with some improvement. Related Data Home Medications Medication Instructions Recorded Confirmed Lactobacillus 1 cap PO DAILY 10/17/21 07/13/23 acidophilus-Bifidobac.animalis 2.5 billion cell capsule (Daily Probiotic) Allergies Allergy/AdvReac Type Severity Reaction Status Date / Time Penicillins AdvReac Anaphylaxis Verified 07/13/23 11:58 Review of Systems Review of Systems: CONSTITUTIONAL: Denies fever, chills, or sweats. EYES: Denies visual changes, redness, or discharge. ENT: Denies rhinorrhea, congestion, sore throat, or otalgia. CARDIOVASCULAR: Denies chest pain, palpitations, or edema. RESPIRATORY: Denies cough or dyspnea. GASTROINTESTINAL: Denies abdominal pain, nausea, vomiting, or diarrhea. GENITOURINARY: Denies dysuria or hematuria. SKIN: Reports pruritic rash to left thigh MUSCULOSKELETAL: Denies back pain, joint pain, or myalgia. NEUROLOGIC: Denies headache, numbness, dizziness, or weakness. PSYCHIATRIC: Denies anxiety or depression. [facility] Past Medical History Medical History Change in bowel habits Depression Dyslipidemia Insomnia Obesity Type 2 diabetes mellitus without complications Uterine fibroid Vitamin D deficiency Surgical History Surgical History H/O bilateral salpingo-oophorectomy (~1987) H/O: hysterectomy (~10/2021) Hx of cholecystectomy (~04/1989) Family History Family History Father Diabetes mellitus Hypertension Heart disease Sibling Alcoholism Diabetes mellitus Hypertension Heart disease Social History Social History Smoking status: Former smoker Smoking end date: 08/09/87 Alcohol intake: never Substance use: never Substance use type: does not use Lack of Transportation: No Lack of Food: Never True Current Housing: I Have Housing Concerned About Future Housing: No Difficulty Paying Gas/Electric Bills: No Difficulty Paying for Meds: No Currently Unemployed: No Education: Trade/Vocational Certificate Difficulty w/ Childcare or Family Care: No Living arrangements: alone Additional living arrangements comments: Occupation/Education: retired Gender identity (if verbalized by the patient): Female Sexual Orientation (if Verbalized by the Patient): Straight or Heterosexual Spiritual care concerns: No Agree to blood products: Yes Exam Narrative: GENERAL: Well-appearing, well-nourished, and in no acute distress. HEAD: Normocephalic, atraumatic. EYES: PERRLA and EOMI. ENT: Nares clear, no rhinorrhea or epistaxis. Mucous membranes moist. Oropharynx without tonsillar hypertrophy exudate or other lesions. Bilateral TMs pearly bartlett nonbulging NECK: Supple. No adenopathy or masses. No carotid bruits or JVD CHEST: Clear to auscultation. No respiratory distress. No wheezes rales or rhonchi HEART: Regular rate and rhythm. No murmur heard. Normal peripheral pulses. ABDOMEN: Soft, nontender, nondistended, normal active bowel sounds. EXTREMITIES: Normal range of motion. No edema. SKIN: There is an erythematous vesicular rash to the anterior aspect of the left thigh NEURO: No fo
== END 2023-07-13 12:28 | disposition home or self-care (01) ==
PROVIDERS: Emergency Provider Nurse Practitioner; PCP Family Medicine
DX: B02.9 Zoster without complications (principal); Z87.891 Personal history of nicotine dependence; E78.5 Hyperlipidemia, unspecified; E66.9 Obesity, unspecified; Z68.38 Body mass index [BMI] 38.0-38.9, adult; E11.9 Type 2 diabetes mellitus without complications; F32.A Depression, unspecified
CPT/HCPCS: 36415; 80053; 80061; 82043; 82306; 82607; 83036; 84443; 85025; 87255; 99213; G0463

== ENCOUNTER 2023-07-20 09:20 | Observation (INO) | payer MEDICARE, SELFPAY ==
[2023-07-20] VITALS (60 sets, daily range): BP systolic 114–160; BP diastolic 66–96; PULSE 64–88; RESP 12–20; TEMP 36.5; O2SAT 96–100
--- NOTE | ~2023-07-20 | NM_ITS ---
EXAMINATION: NM lindsay stress w perfusion DATE: 07/21/2023 16:09 INDICATION: Chest pain. TECHNIQUE: Rest images were obtained following intravenous administration of 7 mCi Tc99m tetrofosmin (Myoview). The patient was infused intravenously with Lexiscan (regadenoson). Then, 21 mCi Tc99m tetr ofosmin (Myoview) was administered intravenously, and supine and prone stress images were obtained. D nichelle was reconstructed into short axis and horizontal and vertical long axis SPECT images. Gated SPECT images were also obtained. COMPARISON: CT abdomen and pelvis 07/24/2021 FINDINGS: There is no definite reversible or fixed perfusion abnormality to suggest ischemia or infar ction. There is no segmental wall motion abnormality. Left ventricular ejection fraction measures > 70%. IMPRESSION: 1. No definite ischemia or infarct. 2. Normal left ventricular ejection fraction measuring >70%. Reviewed, dictated and finalized at location A. SHOVEL OPERATOR
--- NOTE | ~2023-07-20 | XR_ITS ---
EXAMINATION: XR chest 2V DATE: 07/20/2023 10:10 INDICATION: Chest pain and shortness of breath TECHNIQUE: PA and lateral views of the chest are obtained. COMPARISON: 07/24/2021 FINDINGS: The lungs are free of acute opacities. No pleural effusion or pneumothorax. The cardiomedia stinal silhouette is normal. There is moderate thoracic spondylosis. Surgical changes are noted in th e right upper quadrant. 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 IMPRESSION: 1. No acute cardiopulmonary abnormality. Reviewed, dictated and finalized at location L. T FINISHER
--- NOTE | 2023-07-20 09:32 | ECG_ITS ---
Measurements Intervals [place] Rate: 73 P: 40 [place]: 208 QRS: -16 QRSD: 98 T: 14 QT: 376 QTc: 416 Interpretive Statements SINUS RHYTHM MINIMAL VOLTAGE CRITERIA FOR LVH, CONSIDER NORMAL VARIANT [MEETS CRITERIA IN ONE OF: R(aVL), S(V1), R(V5), R(V5/V6)+S(V1)] BORDERLINE ECG COMPARED TO ECG 07/24/2021 13:44:44 NO SIGNIFICANT CHANGES Electronically Signed On 07-21-2023 10:25:46 [employer] by Heber Meadows M.D.
--- NOTE | 2023-07-20 09:42 | ED.CHESTPAIN ---
HPI - Chest Pain General Chief Complaint: Chest Pain <ERWIN Rivas Last Filed: 07/20/23 13:17> Stated Complaint: chest pressure <Sumaya Gaines PA-C - Last Filed: 07/20/23 13:17> Time Seen by Provider: 07/20/23 09:31 <ERWIN Rivas Last Filed: 07/20/23 13:17> Source: patient <ERWIN Rivas Last Filed: 07/20/23 13:17> Mode of arrival: ambulatory <ERWIN Rivas Last Filed: 07/20/23 13:17> Limitations: no limitations <ERWIN Rivas Last Filed: 07/20/23 13:17> History of Present Illness HPI narrative: This is a 72 year old female that presents to the ER for an episode of chest pain which lasted about 15 minutes. Reports she currently has shingles. She was experiencing some pain in the area of her rash. She tried to take pain medication for it with little relief. She sat down to try to eat breakfast. She started to experience substernal chest pressure and was feeling a little short of breath. Denies fever, vomiting or lower extremity edema. <ERWIN Rivas Last Filed: 07/20/23 13:17> Related Data Home Medications: Home Medications Medication Instructions Recorded Confirmed diphenhydramine HCl 25 mg capsule 25 - 50 mg PO TID PRN Itching 07/21/23 07/21/23 (Benadryl) metformin 500 mg tablet 500 mg PO QHS 07/21/23 07/21/23 simvastatin 20 mg tablet 20 mg PO QHS 07/21/23 07/21/23 <ERWIN Rivas Last Filed: 07/20/23 13:17> Allergies/Adverse Reactions: Allergies Allergy/AdvReac Type Severity Reaction Status Date / Time Penicillins Allergy Severe Anaphylaxis Verified 07/20/23 09:33 <ERWIN Rivsa Last Filed: 07/20/23 13:17> Review of Systems Review of Systems: CONSTITUTIONAL: Denies fever CARDIOVASCULAR: Reports chest pain. Denies palpitations, or edema. RESPIRATORY: Reports dyspnea. <Sumaya Gaines PA-C - Last Filed: 07/20/23 13:17> All systems reviewed & are unremarkable except as noted in HPI and below <Sumaya Gaines PA-C - Last Filed: 07/20/23 13:17> [facility] Past Medical History Medical History: Medical History Change in bowel habits Depression Dyslipidemia Insomnia Obesity Seasonal allergies Type 2 diabetes mellitus without complications Uterine fibroid Vitamin D deficiency <Sumaya Gaines PA-C - Last Filed: 07/20/23 13:17> Surgical History Surgical History: Surgical History H/O bilateral salpingo-oophorectomy (~1987) r/t ectopic H/O: hysterectomy (~10/2021) Hx of cholecystectomy (~04/1989) <Sumaya Gaines PA-C - Last Filed: 07/20/23 13:17> Family History Family History: Family History Father Diabetes mellitus Hypertension Heart disease Sibling Alcoholism Diabetes mellitus Hypertension Heart disease <Sumaya Gaines PA-C - Last Filed: 07/20/23 13:17> Social History Social History: Social History Smoking status: Never smoker Smoking end date: 08/09/87 Alcohol intake: never Substance use: current Substance use type: does not use Lack of Transportation: No Lack of Food: Never True Current Housing: I Have Housing Concerned About Future Housing: No Difficulty Paying Gas/Electric Bills: No Difficulty Paying for Meds: No Currently Unemployed: No Education: High School Diploma/GED Difficulty w/ Childcare or Family Care: No Living arrangements: alone Additional living arrangements comments: Occupation/Education: retired Gender identity (if verbalized by the patient): Female Sexual Orientation (if Verbalized by the Patient): Straight or Heterosexual Spiritual care concerns: No Agree to blood products: Yes <Sumaya Gaines PA-C - Last Filed: 12
[2023-07-20 10:14] LABS: Basophils Absolute Auto 0.1 K/mm3 (0.0-0.1); Basophils Percent Auto 0.7 % (0.2-1.2); Eosinophils Absolute Auto 0.2 K/mm3 (0-0.3); Hematocrit 38.1 % (37.0-47.0); Hemoglobin 12.1 g/dL (12.0-15.0); Immature Granulocyte Absolute 0.04 K/mm3 (0.00-0.031); Immature Granulocyte Percent A 0.5 % (0-0.5); Lymphocytes Absolute Auto 4.07 K/mm3 (0.9-3.2); Lymphocytes Percent Auto 46.2 % (18.3-44.2); Mean Corpuscular HGB Conc 31.8 g/dl (32-36); Mean Corpuscular Volume 91.4 fl (80-100); Mean Platelet Volume 11.3 fl (7.4-10.4); Monocytes Absolute Auto 0.4 K/mm3 (0.1-0.6); Monocytes Percent Auto 4.9 % (2.6-8.5); Neutrophils Percent Auto 45.7 % (45.5-73.1); Platelet Count Result 263 k/mm3 (150-375); Red Blood Count 4.17 M/mm3 (4.2-5.4); Red Cell Distribution Width 13.8 % (11.5-14.5); White Blood Count 8.8 K/mm3 (4.5-10.0)
[2023-07-20 10:25] LABS: Prothrombin Time 13.4 Seconds (11.1-14.7)
[2023-07-20 10:26] LABS: Alanine Aminotransferase 25 U/L (6-35); Albumin Level 4.2 g/dL (3.5-5.1); Alkaline Phosphatase 159 U/L (38-126); Anion Gap 8 mmol/L (8-16); Aspartate Amino Transferase 33 U/L (14-36); Bilirubin,Total 0.5 mg/dL (0.2-1.3); Blood Urea Nitrogen 12 mg/dL (7-17); Calcium 8.5 mg/dL (8.4-10.2); Carbon Dioxide 29 mmol/L (22-30); Chloride 103 mmol/L (98-107); Estimated CRCL calculation 63 ml/min; Estimated Glomerular Filt Rate > 60; Glucose 95 mg/dL (65-110); Lipase 96 U/L (23-300); Potassium 3.1 mmol/L (3.4-5.0); Sodium 140 mmol/L (137-145)
[2023-07-20] MEDS: POTASSIUM CHLORIDE 20 MEQ ER TABLET 40 MEQ PO (10:35)
[2023-07-20 10:37] LABS: Troponin I < 0.012 ng/mL (0.000-0.034)
[2023-07-20 10:49] LABS: Magnesium 2.2 mg/dL (1.6-2.3)
[2023-07-20] MEDS: HYDROcodone/acetaminophen (*CRX) 5-325 MG TABLET 1 TAB PO ×2 (12:44→21:25)
--- NOTE | 2023-07-20 12:53 | ECG_ITS ---
Measurements Intervals [place] Rate: 65 P: 39 [place]: 205 QRS: -8 QRSD: 116 T: 24 QT: 379 QTc: 396 Interpretive Statements SINUS RHYTHM MILD INTRAVENTRICULAR CONDUCTION DELAY ABNORMAL ECG COMPARED TO ECG 07/20/2023 09:37:08 INTRAVENTRICULAR CONDUCTION DELAY NOW PRESENT Electronically Signed On 07-21-2023 10:29:05 [employer] by Heber Meadows M.D.
[2023-07-20 13:22] LABS: Troponin I < 0.012 ng/mL (0.000-0.034)
--- NOTE | 2023-07-20 14:37 | PC.NURSE ---
Food order placed for pt through dietary at this time
--- NOTE | 2023-07-20 14:46 | PM.IMHP ---
H&P: HPI History of Present Illness Date/Time: 07/20/23 14:46 Chief Complaint: Chest Pain Narrative: 72 y/o F presents here with indigestion, chest pressure/pain, and palpitations with PMH of DM, HLD, and elevated BP. Patient presents here with indigestion that developed into chest pressure/tightness that encompassed her upper back, palpitations, and SOB. Started while patient was eating around 0830 when symptoms started, remained constant and worsened in intensity over the course of 30 minutes until resolution. Patient reports that the SOB was so bad that she couldn't hardly speak full sentences. No associated nausea, vomiting, sense of doom, new fatigue, or new insomnia in the last few days. Patient called EMS shortly after symptom onset, after their arrival they administered 81 mg of ASA x4. Patient's symptoms then completely resolved. Has concurrent Shingles infection to the LLE that has been present since 07/13, currently resolving but causing moderate to severe discomfort. Placed on steroid taper which has been completed and valacyclovir. Only other new medication/diagnosis was trazodone for insomnia/anxiety that was started approximately one month ago with improvement in both sleep quality and mood. Review of Systems Review of Systems: All systems reviewed & are unremarkable except as noted in HPI and below PMFSH Past Medical History Medical History Change in bowel habits Depression Dyslipidemia Insomnia Obesity Seasonal allergies Type 2 diabetes mellitus without complications Uterine fibroid Vitamin D deficiency Surgical History Surgical History H/O bilateral salpingo-oophorectomy (~1987) r/t ectopic H/O: hysterectomy (~10/2021) Hx of cholecystectomy (~04/1989) Family History Family History Father Diabetes mellitus Hypertension Heart disease Sibling Alcoholism Diabetes mellitus Hypertension Heart disease Social History Social History Smoking status: Former smoker Smoking end date: 08/09/87 Alcohol intake: never Substance use: never Substance use type: does not use Lack of Transportation: No Lack of Food: Never True Current Housing: I Have Housing Concerned About Future Housing: No Difficulty Paying Gas/Electric Bills: No Difficulty Paying for Meds: No Currently Unemployed: No Education: Trade/Vocational Certificate Difficulty w/ Childcare or Family Care: No Living arrangements: alone Additional living arrangements comments: Occupation/Education: retired Gender identity (if verbalized by the patient): Female Sexual Orientation (if Verbalized by the Patient): Straight or Heterosexual Spiritual care concerns: No Agree to blood products: Yes Meds Home Medications and Allergies Home Medications Medication Instructions Recorded Confirmed Type Lactobacillus 1 cap PO DAILY 10/17/21 07/13/23 History acidophilus-Bifidobac.animalis 2.5 billion cell capsule (Daily Probiotic) cholecalciferol (vitamin D3) 50 50 mcg PO DAILY #90 tabs 03/04/22 07/13/23 Rx mcg (2,000 unit) tablet simvastatin 20 mg tablet 20 mg PO DAILY #90 tabs 05/03/23 07/13/23 Rx cetirizine 10 mg tablet (Allergy 10 mg PO DAILY PRN allergy 07/08/23 07/13/23 Rx Relief (cetirizine)) symptoms #90 tabs trazodone 50 mg tablet 50 mg PO QHS #90 tabs 07/08/23 07/13/23 Rx diphenhydramine HCl 25 mg capsule 25 - 50 mg PO TID PRN allergy 07/13/23 Rx (Benadryl) symptoms #30 caps prednisone 20 mg tablet 40 mg PO DAILY 5 days #10 tabs 07/13/23 Rx valacyclovir 1 gram tablet 1,000 mg PO TID #30 tabs 07/13/23 Rx (Valtrex) ergocalciferol (vitamin D2) 1,250 1,250 mcg PO WEEKLY #12 caps 07/14/23 Rx mcg (50,000 unit) capsule Allergies
[2023-07-20 15:55] LABS: Troponin I < 0.012 ng/mL (0.000-0.034)
--- NOTE | 2023-07-20 16:11 | PC.NURSE ---
Sia Jeffery notified about repeat potassium lab draw. States the next order does not need to be drawn until after the IV potassium has infused.
[2023-07-20] MEDS: POTASSIUM CHLORIDE INJ 40 MEQ in SODIUM CHLORIDE 0.9% IV 500 ML 130 MEQ IVPB (16:14)
[2023-07-20 17:18] LABS: Glucose Point of Care 157 mg/dl (65-105)
--- NOTE | 2023-07-20 20:41 | PC.NURSE ---
Sai Jeffery called for pain medication orders per pt request due to increased pain.
[2023-07-20 21:22] LABS: Glucose Point of Care 82 mg/dl (65-105)
[2023-07-20 21:51] LABS: Anion Gap 5 mmol/L (8-16); Blood Urea Nitrogen 10 mg/dL (7-17); Calcium 8.7 mg/dL (8.4-10.2); Carbon Dioxide 30 mmol/L (22-30); Chloride 105 mmol/L (98-107); Estimated CRCL calculation 71 ml/min; Estimated Glomerular Filt Rate > 60; Glucose 106 mg/dL (65-110); Potassium 4.2 mmol/L (3.4-5.0); Sodium 140 mmol/L (137-145)
--- NOTE | 2023-07-20 23:43 | PC.NURSE ---
This RN assumed care of patient. This Rn took patient report from ASHANTI Marin.
[2023-07-21] VITALS (18 sets, daily range): BP systolic 122–165; BP diastolic 64–86; PULSE 63–96; RESP 14–20; TEMP 36.3–36.8; O2SAT 98–100; BMI 37.5
--- NOTE | 2023-07-21 01:26 | ADMGEN ---
This patient, Mayda Galvan, was admitted to [facility]. Patient/family oriented to hospital policies and general routines including ID bracelet, bed and alarms, visiting hours, pain management, procedures, bathroom and other care routines, personal items, smoking policy, room service/diet, and visiting hours. Information on how to activate the Rapid Response Team has been discussed. Patient/Family are encouraged to report perceived risks to care and to ask questions if they do not understand what they are told or what they should do.
[2023-07-21] MEDS: HYDROcodone/acetaminophen (*CRX) 5-325 MG TABLET 1 TAB PO ×3 (04:26→20:42)
[2023-07-21 05:30] LABS: Hematocrit 37.2 % (37.0-47.0); Hemoglobin 12.2 g/dL (12.0-15.0); Mean Corpuscular HGB Conc 32.8 g/dl (32-36); Mean Corpuscular Volume 91.4 fl (80-100); Mean Platelet Volume 11.3 fl (7.4-10.4); Platelet Count Result 246 k/mm3 (150-375); Red Blood Count 4.07 M/mm3 (4.2-5.4); Red Cell Distribution Width 13.7 % (11.5-14.5); White Blood Count 6.4 K/mm3 (4.5-10.0)
[2023-07-21 05:41] LABS: Anion Gap 5 mmol/L (8-16); Blood Urea Nitrogen 10 mg/dL (7-17); Calcium 8.6 mg/dL (8.4-10.2); Carbon Dioxide 30 mmol/L (22-30); Chloride 105 mmol/L (98-107); Estimated CRCL calculation 62 ml/min; Estimated Glomerular Filt Rate > 60; Glucose 90 mg/dL (65-110); Magnesium 2.3 mg/dL (1.6-2.3); Potassium 4.2 mmol/L (3.4-5.0); Sodium 140 mmol/L (137-145)
[2023-07-21 07:27] LABS: Free T4 Free Thyroxine Reflex 1.73 ng/dL (0.78-2.19)
[2023-07-21 08:22] LABS: Total Triiodothyronine (T3) 1.27 NG/ML (0.97-1.69)
--- NOTE | 2023-07-21 08:40 | PM.IMPN ---
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 pain management. Diet: Diabetic GI Prophylaxis: not indicated DVT Prophylaxis: SCDs, Lovenox Lines: pIV Code Status: Full Code Subjective Date/time seen: 07/21/23 08:40 Interval history: 72-year-old female with history of diabetes, hyperlipidemia and hypertension is presenting with shortness of breath and chest pain. No overnight events noted. No chest pain or shortness of breath. No nausea, vomiting or diarrhea. No fevers or chills. Review of Systems Review of Systems: 12 point review of systems was assessed and was negative except as noted in the HPI Exam Narrative: General: No acute distress, alert and oriented per baseline HEENT: Atraumatic, normocephalic, mucous membranes moist CV: Regular rate and rhythm, S1, S2 Lungs: Clear to auscultation bilaterally, no rales or crackles noted, no wheezes, good air entry Abdomen: Soft, nontender, nondistended Extremities: Normal to inspection Skin: No rashes noted, no lesions or wounds seen Psych: Euthymic, normal affect Objective Data Vital Signs Vital Signs: Vital Signs - 24 hr 07/20/23 09:28 07/20/23 09:34 07/20/23 09:32 Temperature 97.7 F Pulse Rate 71 75 Respiratory Rate 14 12 Blood Pressure 136/96 H Pulse Oximetry 99 100 Oxygen Delivery Room Air 07/20/23 09:33 07/20/23 09:45 07/20/23 09:46 Temperature Pulse Rate 77 73 71 Respiratory Rate 20 16 13 Blood Pressure 136/95 H 124/84 Pulse Oximetry 100 97 97 Oxygen Delivery 07/20/23 10:00 07/20/23 10:01 07/20/23 10:36 Temperature Pulse Rate 67 65 68 Respiratory Rate 19 13 12 Blood Pressure 126/76 160/80 H Pulse Oximetry 99 97 Oxygen Delivery 07/20/23 11:15 07/20/23 11:34 07/20/23 11:45 Temperature Pulse Rate 64 67 76 Respiratory Rate 12 14 13 Blood Pressure 143/84 H 139/78 Pulse Oximetry 100 99 100 Oxygen Delivery 07/20/23 11:47 07/20/23 12:00 07/20/23 12:01 Temperature Pulse Rate 71 68 75 Respiratory Rate 12 12 18 Blood Pressure 142/77 H Pulse Oximetry 100 100 100 Oxygen Delivery 07/20/23 12:31 07/20/23 12:32 07/20/23 12:47 Temperature Pulse Rate 83 79 81 Respiratory Rate 16 12 19 Blood Pressure 131/71 Pulse Oximetry 99 100 100 Oxygen Delivery 07/20/23 15:39 07/20/23 17:43 07/20/23 13:31 Temperature Pulse Rate 85 68 88 Respiratory Rate 18 17 18 Blood Pressure 119/71 133/76 Pulse Oximetry 99 98 100 Oxygen Delivery 07/20/23 13:45 07/20/23 14:02 07/20/23 14:21 Temperature Pulse Rate 71 79 75 Respiratory Rate 12 20 18 Blood Pressure Pulse Oximetry 99 98 100 Oxygen Delivery 07/20/23 14:40 07/20/23 14:45 07/20/23 15:30 Temperature Pulse Rate 73 72 77 Respiratory Rate 15 20 20 Blood Pressure Pulse Oximetry 97 96 99 Oxygen Delivery 07/20/23 15:38 07/20/23 15:45 07/20/23 15:46 Temperature Pulse Rate 80 81 83 Respiratory Rate 17 20 20 Blood Pressure 119/71 123/66 Pulse Oximetry 99 98 98 Oxygen Delivery
[2023-07-21] MEDS: ENOXAPARIN 40 MG/0.4 ML SYRINGE SUB-Q (09:17)
[2023-07-21 09:24] LABS: Glucose Point of Care 95 mg/dl (65-105)
[2023-07-21 09:30] LABS: Glucose Point of Care 88 mg/dl (65-105)
--- NOTE | 2023-07-21 11:52 | PCCCNOTE ---
On 07/21/23, the student, [Katja Hodges ], provided care and completed [facility] documentation on this patient. I have reviewed the student's documentation and agree with the findings.
--- NOTE | 2023-07-21 12:14 | EST_ITS ---
Patient Info Name: Mayda Galvan Age: 72 years : 1950 Gender: Female Ht: 66 in Wt: 231 lbs BSA: 2.26 m2 HR: 62 bpm BP: 101 / 64 mmHg Exam Date: 07/21/2023 12:26 PM Exam Location: Echo Lab Patient Status: Outpatient Admit Date: 07/20/2023 Staff Ordering Physician: Heber Meadows MD Attending Provider: Megan Hoskins MD Exercise Technologist: Minnie Navarro RDCS Exercise Physician: Heber Meadows MD Exam Type: CA stress lindsay w NM Study Info A regadenoson stress test was performed. Summary 1. No abnormal ST/T wave changes with Lexiscan. 2. Please correlate with nuclear medicine images, reported separately. 3. Stress test was supervised and interpreted by Dr. Heber Meadows. Protocol: Lexiscan Stress ECG Details Stage: REST Duration (min): 58 min : 32 sec HR (bpm): 65 SBP (mmHg): 101 DBP (mmHg): 64 Stage: REST Duration (min): --- HR (bpm): 68 SBP (mmHg): 101 DBP (mmHg): 64 Stage: STAGE 1 Duration (min): 0 min : 59 sec HR (bpm): 107 SBP (mmHg): 124 DBP (mmHg): 83 Stage: RECOVERY Duration (min): 1 min : 0 sec HR (bpm): 104 SBP (mmHg): 124 DBP (mmHg): 83 Stage: RECOVERY Duration (min): 2 min : 0 sec HR (bpm): 99 SBP (mmHg): 124 DBP (mmHg): 83 Stage: RECOVERY Duration (min): 3 min : 0 sec HR (bpm): 96 SBP (mmHg): 141 DBP (mmHg): 64 Stage: RECOVERY Duration (min): 3 min : 30 sec HR (bpm): 94 SBP (mmHg): 141 DBP (mmHg): 64 Rest HR: 68 bpm Peak HR: 109 bpm Rest Sys BP: 101 mmHg Peak Sys BP: 141 mmHg Max Pred HR: 150 bpm % Max Pred HR: 73 % Target HR: 128 bpm Max RPP: 15,369 bpm*mmHg Target HR Summary: Hemodynamic response to exercise was normal BP Response: Normal blood pressure response Termination Reason: Completed protocol Cardiac Symptoms: None Total Time: 1 min : 0 sec Rest Au BP: 64 mmHg Peak Au BP: 64 mmHg Total Dose: 0.4 mg Stress ECG No abnormal ST/T wave changes with Lexiscan. Report Signatures
--- NOTE | 2023-07-21 12:15 | PM.CNCAR ---
Assessment and Plan Assessment and plan (1) Chest pain: Qualifiers: Chest pain type: unspecified Qualified Code(s): R07.9 - Chest pain, unspecified Code(s): R07.9 - Chest pain, unspecified Status: Acute Assessment and Plan: Atypical. Cardiac versus GI. The sequence of events makes me think it is probably more GI related. She also had been taken some steroids. However she does have multitude of risk factors for heart disease and I think it is reasonable to pursue stress testing for ischemic evaluation. She has been NPO Will and therefore I have ordered a Lexiscan myocardial perfusion study for today. In the meantime, continue statin.. Initiate aspirin 81 mg p.o. daily. Further recommendations depending on the above test results. (2) Hypokalemia: Code(s): E87.6 - Hypokalemia Status: Acute Assessment and Plan: Replaced (3) Hyperlipidemia associated with type 2 diabetes mellitus: Code(s): E11.69 - Type 2 diabetes mellitus with other specified complication; E78.5 - Hyperlipidemia, unspecified Status: Acute Assessment and Plan: On statin. Diabetes management per hospitalist (4) Type 2 diabetes mellitus without complications: Qualifiers: Diabetes mellitus manager long term care insulin use: without [facility]p use Qualified Code(s): E11.9 - Type 2 diabetes mellitus without complications Code(s): E11.9 - Type 2 diabetes mellitus without complications Status: Acute History of Present Illness History of Present Illness Consult date/time: 07/21/23 12:15 Requesting physician: Sia Jeffery APRN Consult reason: chest pain Reason For Visit: chest pain Narrative: Reason for consultation: Chest pain, concern for CAD Date of service 07/21/2023 Requesting provider: Sia Jeffery History patient is a 72-year-old female who does not have known cardiac history is she is aware of. She presented to the hospital following an episode of a severe pressure in chest. She was eating beets intricate the juice yesterday morning whenever she started of have some discomfort in her anterior chest. She thought it was gas at 1st but it started to radiate into her back. She was very short of breath at the time. A progressively worsened to the point that she called her daughter and then eventually EMS was notified. She was given 4 baby aspirins and gradually her symptoms improved over a period of about 30 minutes. She has had no recurrence in her symptoms. She has no chest pain at present. Troponins were negative. EKG was unremarkable without acute ST or T-wave abnormalities. She was not nauseated but she was quite nervous yesterday. In general she has not been having any significant exertional chest pain, syncope, presyncope, paroxysmal nocturnal dyspnea, orthopnea, edema. She does sometimes feel some palpitations which are brief and short-lived. She did feel her heart was beating hard yesterday the time of the chest pressure also. Review of Systems Review of Systems: All systems reviewed & are unremarkable except as noted in HPI and below Constitutional: Constitutional: Denies body ache(s) Eyes: Eyes: Denies blurry vision ENT: Reports Normal hearing present Cardiovascular: Cardiovascular: Reports chest pain and Reports palpitations Respiratory: Respiratory: Denies chest congestion Gastrointestinal: Gastrointestinal: Denies abdominal pain Genitourinary: Genitourinary: Denies hematuria Musculoskeletal: Musculoskeletal: Denies arthralgias Integumentary/Breasts: Skin/Breast: Denies dry skin Neurologic: Denies Abnormal speech present Psychiatric: Psychiatric: Denies anxiety Endocrine: Endocrine: Denies excessive sweating Hematologic/Lymphatic: Hematologic/Lymphatic: Denies easy bleeding Allergic/Immunologic: Allergic/Immunologic: Denies GI upset with certain foods PMFSH Past Medical History Medical History (Reviewed 07/21/23 @ 12:19 by Heber
[2023-07-21 12:29] LABS: Glucose Point of Care 94 mg/dl (65-105)
[2023-07-21] MEDS: valACYclovir HCL 500 MG TABLET 1000 MG PO ×2 (15:36→18:03)
[2023-07-21 18:47] LABS: Glucose Point of Care 139 mg/dl (65-105)
[2023-07-21] MEDS: SIMVASTATIN 20 MG TABLET PO (20:42)
[2023-07-21] MEDS: traZODone HCL 50 MG TABLET PO (20:43)
[2023-07-21 20:54] LABS: Glucose Point of Care 111 mg/dl (65-105)
[2023-07-22] VITALS: BP 143/67; PULSE 72; RESP 14; TEMP 36.2; O2SAT 100
[2023-07-22 02:00] VITALS: PULSE 70
[2023-07-22 04:00] VITALS: BP 120/65; PULSE 62; PULSE 77; RESP 14; TEMP 36.1; O2SAT 99
[2023-07-22 05:35] LABS: Basophils Absolute Auto 0.1 K/mm3 (0.0-0.1); Basophils Percent Auto 0.8 % (0.2-1.2); Eosinophils Absolute Auto 0.2 K/mm3 (0-0.3); Eosinophils Percent Auto 2.5 % (0-4.4); Hematocrit 38.9 % (37.0-47.0); Hemoglobin 12.4 g/dL (12.0-15.0); Immature Granulocyte Absolute 0.03 K/mm3 (0.00-0.031); Immature Granulocyte Percent A 0.5 % (0-0.5); Lymphocytes Absolute Auto 3.22 K/mm3 (0.9-3.2); Lymphocytes Percent Auto 50.9 % (18.3-44.2); Mean Corpuscular HGB Conc 31.9 g/dl (32-36); Mean Corpuscular Hemoglobin 29.2 pg (26-34); Mean Corpuscular Volume 91.5 fl (80-100); Mean Platelet Volume 11.2 fl (7.4-10.4); Monocytes Absolute Auto 0.5 K/mm3 (0.1-0.6); Monocytes Percent Auto 7.8 % (2.6-8.5); Neutrophils Absolute Auto 2.4 K/mm3 (1.3-6.7); Neutrophils Percent Auto 37.5 % (45.5-73.1); Platelet Count Result 244 k/mm3 (150-375); Red Blood Count 4.25 M/mm3 (4.2-5.4); Red Cell Distribution Width 13.9 % (11.5-14.5); White Blood Count 6.3 K/mm3 (4.5-10.0)
[2023-07-22 05:46] LABS: Alanine Aminotransferase 25 U/L (6-35); Alkaline Phosphatase 143 U/L (38-126); Anion Gap 4 mmol/L (8-16); Aspartate Amino Transferase 31 U/L (14-36); Bilirubin,Total 0.5 mg/dL (0.2-1.3); Blood Urea Nitrogen 13 mg/dL (7-17); Calcium 8.5 mg/dL (8.4-10.2); Carbon Dioxide 29 mmol/L (22-30); Chloride 105 mmol/L (98-107); Estimated CRCL calculation 52 ml/min; Estimated Glomerular Filt Rate 60; Glucose 97 mg/dL (65-110); Potassium 3.9 mmol/L (3.4-5.0); Sodium 138 mmol/L (137-145)
[2023-07-22 06:00] VITALS: PULSE 62
[2023-07-22 08:00] VITALS: PULSE 108
[2023-07-22 08:09] VITALS: BP 128/71; PULSE 78; RESP 18; TEMP 36.5; O2SAT 100
--- NOTE | 2023-07-22 08:43 | PM.DS ---
DS: Admitting Diagnosis Discharge Date 07/22/23 Admitting Diagnosis chest pain DS: Discharge Diagnosis Discharge Diagnosis (1) Chest pain: Qualifiers: Chest pain type: unspecified Qualified Code(s): R07.9 - Chest pain, unspecified Code(s): R07.9 - Chest pain, unspecified Status: Acute Assessment and Plan: ECG nonacute, troponin negative x3, cardiology consult ordered and pending TSH within normal limits (2) Hypokalemia: Code(s): E87.6 - Hypokalemia Status: Acute Assessment and Plan: Resolved (3) Type 2 diabetes mellitus without complications: Qualifiers: Diabetes mellitus [facility] insulin use: without [facility] use Qualified Code(s): E11.9 - Type 2 diabetes mellitus without complications Code(s): E11.9 - Type 2 diabetes mellitus without complications Status: Acute Assessment and Plan: Accu-Cheks, sliding scale insulin, A1C 5.9 on 07/13/23 Plan Home Meds/Chronic Conditions - shingles: continued valacyclovir TID. pain management. Diet: Diabetic GI Prophylaxis: not indicated DVT Prophylaxis: SCDs, Lovenox Lines: pIV Code Status: Full Code DS: Summary Hospital Course Hospital Course: 72 y/o F presents here with indigestion, chest pressure/pain, and palpitations with PMH of DM, HLD, and elevated BP. Patient presents here with indigestion that developed into chest pressure/tightness that encompassed her upper back, palpitations, and SOB. Started while patient was eating around 0830 when symptoms started, remained constant and worsened in intensity over the course of 30 minutes until resolution. Patient reports that the SOB was so bad that she couldn't hardly speak full sentences. No associated nausea, vomiting, sense of doom, new fatigue, or new insomnia in the last few days. Patient called EMS shortly after symptom onset, after their arrival they administered 81 mg of ASA x4. Patient's symptoms then completely resolved. Has concurrent Shingles infection to the LLE that has been present since 07/13, currently resolving but causing moderate to severe discomfort. Placed on steroid taper which has been completed and valacyclovir. Only other new medication/diagnosis was trazodone for insomnia/anxiety that was started approximately one month ago with improvement in both sleep quality and mood. Atypical chest pain.? Cardiac etiology versus GI.? The sequence of events makes it probably more GI related.?Continue statin. Initiate aspirin 81 mg p.o. daily.? Stress test ordered and was negative for ischemic etiology. Okay for discharge per Cardiology with outpatient GI workup. Please see above and med rec for details. Patient was discharged in stable condition with close outpatient follow-up. Time Spent with Patient Time attestation: Total time spent providing and/or coordinating discharge services: Exam Narrative: General: No acute distress, alert and oriented per baseline HEENT: Atraumatic, normocephalic, mucous membranes moist CV: Regular rate and rhythm, S1, S2 Lungs: Clear to auscultation bilaterally, no rales or crackles noted, no wheezes, good air entry Abdomen: Soft, nontender, nondistended Extremities: Normal to inspection Skin: No rashes noted, no lesions or wounds seen Psych: Euthymic, normal affect DS: Data Data Completed and Pending Labs on day of discharge: Labs from last 24 hours 07/22/23 07/21/23 07/21/23 04:35 19:56 16:34 WBC 6.3 RBC 4.25 Hgb 12.4 Hct 38.9 MCV 91.5 MCH 29.2 MCHC 31.9 L RDW 13.9 Plt Count 244 MPV 11.2 H Immature Gran % (Auto) 0.5 Neut % (Auto) 37.5 L Lymph % (Auto) 50.9 H [place] % (Auto) 7.8 Eos % (Auto) 2.5 Baso % (Auto) 0.8 Lymph # (Auto) 3.22 H [place] # (Auto) 0.5 Eos # (Auto) 0.2 Baso # (Auto) 0.1 Abs Immat Gran (auto) 0.03 Absolute Neuts (auto) 2.4 Absolute Nucleated RBC 0.0 Nucleated RBC %
[2023-07-22] MEDS: valACYclovir HCL 500 MG TABLET 1000 MG PO (08:45)
[2023-07-22 09:13] LABS: Glucose Point of Care 94 mg/dl (65-105)
== END 2023-07-22 10:58 | disposition home or self-care (01) ==
LOC: ANHED 13:17 → ANHIMU 07-21 02:32
PROVIDERS: Student in an Organized Health Care Education/Training Program; Admitting Provider General Practice; Emergency Provider Physician Assistant; PCP Family Medicine; Visit Provider Student in an Organized Health Care Education/Training Program
DX: R07.9 Chest pain, unspecified (principal); E11.69 Type 2 diabetes mellitus with other specified complication; E87.6 Hypokalemia; E78.5 Hyperlipidemia, unspecified; I45.4 Nonspecific intraventricular block; R06.02 Shortness of breath; B02.9 Zoster without complications; G47.00 Insomnia, unspecified; I10 Essential (primary) hypertension; J30.2 Other seasonal allergic rhinitis; E55.9 Vitamin D deficiency, unspecified; F32.A Depression, unspecified; Z79.52 Long term (current) use of systemic steroids; Z79.84 Long term (current) use of oral hypoglycemic drugs; Z79.899 Other long term (current) drug therapy; Z83.3 Family history of diabetes mellitus; Z82.49 Family history of ischemic heart disease and other diseases of the circulatory system
CPT/HCPCS: 36415; 71046; 78452; 80048; 80053; 82948; 83690; 83735; 84439; 84443; 84480; 84484; 85025; 85027; 85610; 85730; 93005; 93017; 96365; 96366; 96372; 99285; A9270; A9502; G0378; J1650; J2785; J3480; J7040

== ENCOUNTER 2023-11-30 14:17 | Outpatient (CLI) | payer MEDICARE, SELFPAY ==
--- NOTE | ~2023-11-30 | MM_ITS ---
EXAMINATION: MM screening christine BI w malcolm HISTORY: Screening mammogram TECHNIQUE: Craniocaudal and mediolateral oblique 3-D tomosynthesis images were obtained and synthetic 2-D images were generated. CAD analysis was submitted and interpreted. COMPARISON: No prior mammogram is available for comparison at this institution. BREAST PARENCHYMAL COMPOSITION: There are scattered areas of fibroglandular density. FINDINGS: There is no evidence of suspicious mass, calcification, or architectural distortion to sugg est malignancy in either breast. IMPRESSION: 1. No mammographic evidence of malignancy. 2. Recommend routine screening mammography in one year. BI-RADS Category 1: Negative Reviewed, dictated and finalized at location A.
== END 2023-11-30 14:18 | disposition home or self-care (01) ==
LOC: ANHIMG 14:19
PROVIDERS: PCP Family Medicine; Visit Provider Family Medicine
DX: Z12.31 Encounter for screening mammogram for malignant neoplasm of breast (principal)
CPT/HCPCS: 77063; 77067

== ENCOUNTER 2023-12-01 12:40 | Outpatient (CLI) | payer MEDICARE, SELFPAY ==
--- NOTE | ~2023-12-01 | XR_ITS ---
EXAMINATION: XR knee RT min 4V DATE: 12/01/2023 12:59 INDICATION: Right knee pain. TECHNIQUE: 4 views of right knee were obtained. COMPARISON: None. FINDINGS: Bone alignment is normal. No fracture. There is mild tricompartmental osteoarthritis. No kn ee joint effusion. IMPRESSION: 1. Mild right knee osteoarthritis. Reviewed, dictated and finalized at location E.
== END 2023-12-01 12:41 | disposition home or self-care (01) ==
LOC: ANHIMG 12:43
PROVIDERS: PCP Family Medicine; Visit Provider Family Medicine
DX: M17.11 Unilateral primary osteoarthritis, right knee (principal); G89.29 Other chronic pain
CPT/HCPCS: 73564

== ENCOUNTER 2024-02-16 15:06 | Outpatient (CLI) | payer MEDICARE, SELFPAY ==
[2024-02-16 15:48] LABS: Alanine Aminotransferase 18 U/L (6-35); Albumin Level 4.6 g/dL (3.5-5.1); Alkaline Phosphatase 154 U/L (38-126); Anion Gap 7 mmol/L (4-12); Aspartate Amino Transferase 29 U/L (14-36); Bilirubin,Total 0.3 mg/dL (0.2-1.3); Blood Urea Nitrogen 14 mg/dL (7-17); Calcium 8.9 mg/dL (8.4-10.2); Carbon Dioxide 32 mmol/L (22-30); Chloride 101 mmol/L (98-107); Estimated Glomerular Filt Rate > 60; Glucose 81 mg/dL (65-110); Potassium 4.6 mmol/L (3.4-5.0); Sodium 140 mmol/L (137-145)
[2024-02-16 16:47] LABS: Vitamin D 25 Hydroxy 41.9 ng/mL
[2024-02-16 17:34] LABS: Hemoglobin A1C 6.3 % (<5.7)
== END 2024-02-16 15:07 | disposition home or self-care (01) ==
PROVIDERS: PCP Family Medicine; Visit Provider Family Medicine
DX: E87.6 Hypokalemia (principal); E55.9 Vitamin D deficiency, unspecified; E11.9 Type 2 diabetes mellitus without complications; Z79.899 Other long term (current) drug therapy
CPT/HCPCS: 36415; 80053; 82306; 83036

== ENCOUNTER 2024-07-19 11:38 | Emergency (ER) | payer MEDICARE, SELFPAY ==
--- NOTE | ~2024-07-19 | XR_ITS ---
Portable chest x-ray Comparison: 07/20/2023 Clinical History: Cough Findings: Lungs are clear, without focal consolidation or pleural effusion. Cardiomediastinal silho uette is stable. Bones and soft tissues are unremarkable. Impression: Clear lungs. Reviewed, dictated and finalized at location . D PROTECTIVE SERVICES SPECIALIST Impression: Clear lungs.
[2024-07-19 11:50] VITALS: BP 142/74; PULSE 92; RESP 16; TEMP 36.4; O2SAT 98
[2024-07-19 13:33] LABS: Influenza A QL RT-PCR Negative (Negative); Influenza B QL RT-PCR Negative (Negative); RSV RNA, RT-PCR Negative (Negative); SARS-CoV-2 RNA PCR Positive (Negative)
--- NOTE | 2024-07-19 14:34 | ED_ITS ---
HPI - URI/Sore Throat General Chief Complaint: Upper Respiratory Infection Stated Complaint: sore throat, cough Time Seen by Provider: 07/19/24 12:58 Source: patient Mode of arrival: ambulatory Limitations: no limitations History of Present Illness HPI Narrative: 73-year-old with a history of hyperlipidemia here with the complaints of cold, congestion, nonproductive cough for last 3-4 days. She denies any fever. No history of shortness of breath or chest pain. MD elicited complaint: cough and nasal congestion Onset (ago): day(s) (4) Consistency: constant Exacerbating factors: nothing Relieving factors: nothing Associated symptoms: denies other symptoms Treatments prior to arrival: none Related Data Allergies Allergy/AdvReac Type Severity Reaction Status Date / Time Penicillins Allergy Severe Anaphylaxis Verified 07/13/24 11:36 Review of Systems Review of Systems: All systems reviewed & are unremarkable except as noted in HPI and below Constitutional: Constitutional: Reports no additional constitutional complaints Eyes: Eyes: Reports no additional eye complaints ENT: Reports system reviewed and no additional complaints, except as documented Cardiovascular: Cardiovascular: Reports no additional cardiovascular complaints Respiratory: Respiratory: Reports as per HPI Musculoskeletal: Musculoskeletal: Reports no additional musculoskeletal complaints Integumentary/Breasts: Skin/Breast: Reports system reviewed and no additional complaints, except as docu Psychiatric: Psychiatric: Reports no additional psychiatric complaints Endocrine: Endocrine: Reports no additional endocrine complaints FOR[facility] Past Medical History Medical History Insomnia Depression Change in bowel habits Type 2 diabetes mellitus without complications Seasonal allergies Vitamin D deficiency Dyslipidemia Obesity Uterine fibroid Surgical History Surgical History H/O bilateral salpingo-oophorectomy (~1987) r/t ectopic H/O: hysterectomy (~10/2021) Hx of cholecystectomy (~04/1989) Family History Family History Father Diabetes mellitus Hypertension Heart disease Sibling Alcoholism Diabetes mellitus Hypertension Heart disease Social History Social History Smoking status: Former smoker Smoking end date: 08/09/87 Alcohol intake: never Substance use: current Substance use type: does not use Do You Feel Safe in your Home?: Yes Lack of Transportation: No Lack of Food: Never True Current Housing: I Have Housing Concerned About Future Housing: No Difficulty Paying Gas/Electric Bills: No Difficulty Paying for Meds: No Currently Unemployed: No Education: High School Diploma/GED Difficulty w/ Childcare or Family Care: No Living arrangements: alone Additional living arrangements comments: Occupation/Education: retired Gender identity (if verbalized by the patient): Female Sexual Orientation (if Verbalized by the Patient): Straight or Heterosexual Spiritual care concerns: No Agree to blood products: Yes Exam Narrative: GENERAL: Well-appearing, well-nourished, and in no acute distress. HEAD: Normocephalic, atraumatic. EYES: PERRLA and EOMI. NECK: Supple. CHEST: Clear to auscultation. No respiratory distress. HEART: Regular rate and rhythm. No murmur heard. Normal peripheral pulses. EXTREMITIES: Normal range of motion. No edema. SKIN: Warm, dry, no rash. NEURO: No focal deficits. Alert and oriented x3. PSYCH: Normal mood and affect. Course Course Emergency Course: Informed patient about her lab work and x-ray findings. Advised her to drink fluids as tolerated, rest. Vital Signs Vital signs: Vital Signs Temperature 36.4 C 07/19/24 11:50 Pulse Rate 92 07/19/24 11:50 Respiratory Rate 16 07/19/24 11:50 Blood Pressure 142/74 H 07/19/24 11:50 Pulse Oximetry 98 07/19/24 11:50 Temperature 36.4 C 07/19/24 11:50 Pulse Rate 92 07/19/24 11:50 Respiratory Rate 16 07/19/24 11:50 Blood Pressure 142/74 H 07/19/24 11:50 Pulse Oximetry 98 07/19/24 11:50 Oxygen Delivery Room Air 07/19/24 13:06 MDM - URI/Sore Throat Lab Data Labs: Lab Results 07/19/24 Range/Units 12:47 Influenza A (RT-PCR) Negative (Negative) Influenza B (RT-PCR) Negative (Negative) RSV (RT-PCR) Negative (Negative) SARS-CoV-2 RNA (RT-PCR) Positive A (Negative) Imaging Data Radiologist's impression: ITS Impressions Chest X-Ray 07/19/24 13:10 Impression: Clear lungs. Discharge Plan Discharge Clinical Impression: COVID Patient Disposition: Home, Self-Care Condition: Stable Instructions: Viral Syndrome (ED), COVID-19 (Coronavirus Disease 2019) (ED) Patient Language: Telugu Prescriptions: New benzonatate 100 mg capsule 100 mg PO TID PRN (Reason: cough) Qty: 30 0RF No Action (DME) blood-glucose meter Kit See Rx Instructions .Route Qty: 1 0RF Rx Instructions: As directed (DME) blood sugar diagnostic Strip See Rx Instructions .Route Qty: 100 0RF Rx Instructions: As directed (DME) lancets [Accu-Chek Softclix Lancets] Misc See Rx Instructions .Route Qty: 100 0RF Rx Instructions: test daily and prn cholecalciferol (vitamin D3) 50 mcg (2,000 unit) tablet 50 mcg PO DAILY Qty: 90 2RF cetirizine [Allergy Relief (cetirizine)] 10 mg tablet 10 mg PO DAILY PRN (Reason: allergy symptoms) Qty: 90 0RF (DME) OneTouch Verio test strips Strip See Rx Instructions .Route Qty: 100 5RF Rx Instructions: check blood sugars TIDAC As directed phentermine 30 mg capsule 30 mg PO DAILY Qty: 30 0RF Rx Instructions: must administer 2 hours after breakfast aspirin 81 mg capsule 81 mg PO DAILY 30 Days Qty: 30 0RF pravastatin 10 mg tablet 10 mg PO QHS Qty: 90 1RF Follow-up/Referrals: Katina Bailey MD [Primary Care Provider] - Time of Disposition: 14:38
== END 2024-07-19 14:45 | disposition home or self-care (01) ==
PROVIDERS: Emergency Medicine; Emergency Provider Family Medicine; PCP Family Medicine
DX: U07.1 COVID-19 (principal); E11.9 Type 2 diabetes mellitus without complications; E55.9 Vitamin D deficiency, unspecified; E78.5 Hyperlipidemia, unspecified; E66.9 Obesity, unspecified; Z68.38 Body mass index [BMI] 38.0-38.9, adult; Z87.891 Personal history of nicotine dependence; Z90.79 Acquired absence of other genital organ(s); Z90.710 Acquired absence of both cervix and uterus; Z90.49 Acquired absence of other specified parts of digestive tract; Z79.82 Long term (current) use of aspirin; Z79.899 Other long term (current) drug therapy
CPT/HCPCS: 71045; 87637; 99283

== ENCOUNTER 2024-07-26 09:49 | Outpatient (CLI) | payer MEDICARE, SELFPAY ==
[2024-07-26 10:39] LABS: Basophils Percent Auto 0.6 % (0.2-1.2); Eosinophils Absolute Auto 0.1 K/mm3 (0-0.3); Eosinophils Percent Auto 2.2 % (0-4.4); Hematocrit 37.9 % (37.0-47.0); Hemoglobin 12.4 g/dL (12.0-15.0); Immature Granulocyte Absolute 0.02 K/mm3 (0.00-0.031); Immature Granulocyte Percent A 0.3 % (0-0.5); Lymphocytes Absolute Auto 3.09 K/mm3 (0.9-3.2); Lymphocytes Percent Auto 48.9 % (18.3-44.2); Mean Corpuscular HGB Conc 32.7 g/dl (32-36); Mean Corpuscular Hemoglobin 29.4 pg (26-34); Mean Corpuscular Volume 89.8 fl (80-100); Mean Platelet Volume 11.2 fl (7.4-10.4); Monocytes Absolute Auto 0.3 K/mm3 (0.1-0.6); Monocytes Percent Auto 5.4 % (2.6-8.5); Neutrophils Absolute Auto 2.7 K/mm3 (1.3-6.7); Neutrophils Percent Auto 42.6 % (45.5-73.1); Platelet Count Result 292 k/mm3 (150-375); Red Blood Count 4.22 M/mm3 (4.2-5.4); Red Cell Distribution Width 13.2 % (11.5-14.5); White Blood Count 6.3 K/mm3 (4.5-10.0)
[2024-07-26 10:49] LABS: Alanine Aminotransferase 21 U/L (6-35); Albumin Level 4.3 g/dL (3.5-5.1); Alkaline Phosphatase 165 U/L (38-126); Anion Gap 4 mmol/L (4-12); Aspartate Amino Transferase 31 U/L (14-36); Bilirubin,Total 0.4 mg/dL (0.2-1.3); Blood Urea Nitrogen 10 mg/dL (7-17); Carbon Dioxide 30 mmol/L (22-30); Chloride 107 mmol/L (98-107); Cholesterol 184 mg/dL (0-200); Estimated Glomerular Filt Rate > 60; Glucose 97 mg/dL (65-110); HDL Direct 37 mg/dL; Hemoglobin A1C 6.3 % (<5.7); Potassium 4.3 mmol/L (3.4-5.0); Sodium 141 mmol/L (137-145); Triglycerides 126 mg/dL (<150)
[2024-07-26 10:59] LABS: LDL Cholesterol Direct 100 mg/dL
[2024-07-26 12:39] LABS: Creatinine Urine 117.9 mg/dL
[2024-07-26 12:44] LABS: MALB Creatinine Ratio 7.2 mg/g (0-30); Microalbumin Urine Random 8.5 mg/L (0-16.7)
== END 2024-07-26 09:50 | disposition home or self-care (01) ==
LOC: ANHLAB 09:50
PROVIDERS: PCP Family Medicine; Visit Provider Family Medicine
DX: E55.9 Vitamin D deficiency, unspecified (principal); E11.9 Type 2 diabetes mellitus without complications; I10 Essential (primary) hypertension; E53.8 Deficiency of other specified B group vitamins; E78.5 Hyperlipidemia, unspecified
CPT/HCPCS: 36415; 80053; 80061; 82043; 82306; 82607; 83036; 84443; 85025

== ENCOUNTER 2024-10-10 10:51 | Outpatient (CLI) | payer MEDICARE, SELFPAY | END 2024-10-10 10:52 | disposition home or self-care (01) | LOC: ANHIMG 10:51 | PROVIDERS: PCP Family Medicine; Visit Provider Family Medicine | DX: M85.851 Other specified disorders of bone density and structure, right thigh (principal); Z78.0 Asymptomatic menopausal state | CPT/HCPCS: 77080 ==

== ENCOUNTER 2025-02-21 10:18 | Outpatient (CLI) | payer MEDICARE, SELFPAY ==
--- OUTSIDE RECORDS SUMMARY | 2025-02-21 10:31 | XMS_ITS | Referral Summary ---
Author Organization [facility] at the Medical Office Building Address [address] [place] [address] Care Team Providers Care Coding Clerks Supervisor Name Role Phone Dann Vega MD Unavailable [phone] Yael Bailey MD Primary Care Provider Allergies Active Allergy Reactions Criticality Noted Date Comments Penicillins Other (See comments) Low 10/13/2013 Possible allergy to pcn Medications simvastatin (ZOCOR) 20 mg tablet Take 1 tablet (20 mg total) by mouth daily Active traZODone (DESYREL) 50 mg tablet Take 1 tablet (50 mg total) by mouth nightly at bedtime 3 Active metFORMIN (GLUCOPHAGE) 500 mg tablet Take 1 tablet (500 mg total) by mouth nightly at bedtime 3 Active ergocalciferol (VITAMIN D) 50,000 unit capsule Take 1 capsule (50,000 Units total) by mouth once a week Active aspirin 81 mg chewable tablet Take 1 tablet (81 mg total) by mouth daily 7 Active cyanocobalamin, vitamin B-12, 1,000 mcg tablet extended release Take 1,000 mcg by mouth daily 7 Active fluticasone propionate (FLONASE) 50 mcg/actuation nasal spray Administer 2 sprays into affected nostril(s) daily 1 Active levocetirizine (XYZAL) 5 mg tablet Take 1 tablet (5 mg total) by mouth nightly Active Active Problems No known active problems Social History Tobacco Use Types Packs/Day Years Used Date Smoking Tobacco: Never Smokeless Tobacco: Never Tobacco Cessation:Counseling Given: Not Answered Alcohol Use Standard Drinks/Week Comments Yes 0 (1 standard drink = 0.6 oz pur e alcohol) socially Personal Safety Answer Date Recorded Getting School Help Needed Not on file 07/22 Comments No Sex and Gender Information Value Date Recorded Sex Assigned at Not on file Legal Sex Female 7:54 PM CORPORATE STRATEGIST Gender Identity Not on file Sexual Orientation Not on file Last Filed Vital Signs Vital Sign Reading Time Taken Comments Blood Pressure 122/68 08/16/2023 2:36 PM CORPORATE STRATEGIST Pulse 89 08/16/2023 2:36 PM CORPORATE STRATEGIST Temperature 36.4 C (97.6 F) 01/17/2020 2:44 PM CDT Respiratory Rate - - Oxygen Saturation 95% 08/16/2023 2:36 PM CORPORATE STRATEGIST Inhaled Oxygen Concentration - - Weight 105.7 kg (233 lb) 08/16/2023 2:36 PM CORPORATE STRATEGIST Height 167.6 cm (5' 6) 08/16/2023 2:36 PM CORPORATE STRATEGIST Body Mass Index 37.61 08/16/2023 2:36 PM CORPORATE STRATEGIST Plan of Treatment Not on file Procedures Procedure Name Priority Date/Time Associated Diagnosis Comments SCREENING MAMMOGRAM BILATERAL W JUSTIN 03/07/2020 12:41 PM CDT from Last 3 Months or Most Recently Relevant to Health Maintenance Results * Screening Mammogram Bilateral W Justin (03/07/2020 12:41 PM CDT) Anatomical Region Laterality Modality Breast Bilateral Mammography 03/07/2020 1:27 PM CDT Narrative 03/08/2020 10:07 AM CDT Patient Name: ASHLY GALVAN Ordering Dr: Maximo ArcherO.B: 1950 Exam Date: 03/07/20 1241 Age: 69 Sex: Female MR#: [id number] Loc: RADIOLOGY REPORT Order #[id number] [facility] Kera Bilat Screening 3D Signed - MG BILATERAL DIGITAL SCREENING MAMMOGRAM 3D/2D WITH MEDIOLATERAL OBLIQUE CRANIOCAUDAL: 03/07/2020 The study was acquired using full field digital technology and interpreted from soft copy. 2D digital mammographic views, as well as 3D digital tomosynthesis were performed in the CC and MLO projections. CLINICAL: Routine mammogram. Denies any problems today. No personal history of breast cancer. No family history of breast cancer. COMPARISONS: No prior exams were available for comparison. BREAST TISSUE: There are scattered areas of fibroglandular density. FINDINGS: No significant masses, calcifications, or other findings are seen in either breast. IMPRESSION: BI-RAD 1 NEGATIVE There is no mammographic evidence of malignancy. A 1 year screening mammogram is recommended. The patient has been or will be contacted. We recommend annual screening mammography for women at average risk of breast cancer beginning at age 40, based on guidelines of the [employer] (ACR Practice Parameter for the Performance of Screening and Diagnostic Mammography) and [employer]. For women with an elevated risk of breast cancer, please refer to the ACR Practice Parameter for specific screening recommendations. The patient will be entered into a reminder system with a target due date of 1 year for her next screening exam. Electronically signed by: Jacinto kramer/eber:03/08/2020 10:07:21 Stationary Engineer: Ruba Cochran (R)), [facility] letter sent: Normal Exam Reading location: BI-RADS: 1 Negative REPORT ELECTRONICALLY SIGNED IN OTHER VENDOR SYSTEM Resulting Agency Comment O Procedure Note Jacinto Bass MD - 03/08/2020 Patient Name: COLEMacy Dr: Maximo Archer DO, D.O.B: 1950 Exam Date: 03/07/20 1241 Age: 69 Sex: Female MR#: [id number] Loc: RADIOLOGY REPORT Order #[id number] [facility] Kera Bilat Screening 3D Signed - MG BILATERAL DIGITAL SCREENING MAMMOGRAM 3D/2D WITH MEDIOLATERAL OBLIQUE CRANIOCAUDAL: 03/07/2020 The study was acquired using full field digital technology andinterpreted from soft copy. 2D digital mammographic views, as well as 3D digital tomosynthesis were performed in the CC and MLO projections. CLINICAL: Routine mammogram. Denies any problems today. No personalhistory of breast cancer. No family history of breast cancer. COMPARISONS: No prior exams were available for comparison. BREAST TISSUE: There are scattered areas of fibroglandular density. FINDINGS: No significant masses, calcifications, or other findings areseen in either breast. IMPRESSION: BI-RAD 1 NEGATIVE There is no mammographic evidence of malignancy. A 1 year screeningmammogram is recommended. The patient has been or will be contacted. We recommend annual screening mammography for women at average risk ofbreast cancer beginning at age 40, based on guidelines of the [place] [employer] (ACR Practice Parameter for the Performance of Screening and Diagnostic Mammography) and [employer]. For women with an elevated risk of breast cancer, pleaserefer to the ACR Practice Parameter for specific screening recommendations. The patient will be entered into a reminder system with a target due dateof 1 year for her next screening exam. Electronically signed by: Jacinto Schwarz rl/eber:03/08/2020 10:07:21 Stationary Engineer: Ruba Jimenez)(Antonette), [facility] letter sent: Normal Exam Reading location: BI-RADS: 1 Negative REPORT ELECTRONICALLY SIGNED IN OTHER VENDOR SYSTEM Maximo Archer DO IMG MAMMO PROCEDURES F inal Result from Last 3 Months or Most Recently Relevant to Health Maintenance Insurance [facility] MEDICARE ADVANTAGE [facility] MEDICARE Address: [facility] [address] [place] [address] Care Teams Coding Clerks Supervisor Relationship Specialty Start Date End Date Yael Bailey MD [address] [place] [address] PCP - General Family Practice 08/16/23 Dann Vega MD 03/01/20
--- OUTSIDE RECORDS SUMMARY | 2025-02-21 10:31 | XMS_ITS | Clinical Summary ---
Author Organization [facility] at the Medical Office Building Address [address] [place] [address] Care Team Providers Care Treating Plant Supervisor Name Role Phone Dann Vega MD Unavailable [phone] Yael Bailey MD Primary Care Provider [...] Active Active Problems No known active problems Surgical History Surgery Date Site/Laterality Comments CHOLECYSTECTOMY 08/09/1998 - 08/08/1999 SALPINGECTOMY 08/09/1988 - 08/08/1989 Family History Medical History Relation Name Comments Heart disease Brother Diabetes Father Heart disease Father Hypertension Father Diabetes Mother Heart disease Sister Breast cancer Neg Hx Ovarian cancer Neg Hx Relation Name Status Comments Brother Father Mother Sister Social History Tobacco Use Types Packs/Day Years [...] on file Legal Sex Female 7:54 PM CERTIFIED OPHTHALMIC TECHNOLOGIST Gender Identity Not on file Sexual Orientation Not on file Obstetrics History Para Term AB IAB SAB Ectopic Multiple Livin g Live Births 6 4 2 1 1 4 Date Outcome GA Total Labor Labor/2nd/3rd Weight Sex Type Anes PTL Gina A1 A5 Name Clin Para Para Para Para SAB IAB Last Filed Vital Signs Vital Sign Reading Time Taken Comments Blood Pressure 122/68 08/16/2023 2:36 PM CERTIFIED OPHTHALMIC TECHNOLOGIST Pulse 89 08/16/2023 2:36 PM CERTIFIED OPHTHALMIC TECHNOLOGIST Temperature 36.4 C (97.6 F) 01/17/2020 2:44 PM CDT Respiratory Rate - - Oxygen Saturation 95% 08/16/2023 2:36 PM CERTIFIED OPHTHALMIC TECHNOLOGIST Inhaled Oxygen Concentration - - Weight 105.7 kg (233 lb) 08/16/2023 2:36 PM CERTIFIED OPHTHALMIC TECHNOLOGIST Height 167.6 cm (5' 6) 08/16/2023 2:36 PM CERTIFIED OPHTHALMIC TECHNOLOGIST Body Mass Index 37.61 08/16/2023 2:36 PM CERTIFIED OPHTHALMIC TECHNOLOGIST Plan of Treatment Health Maintenance Due Date Last Done Comments Colon Cancer Screening-Colonoscopy 1950 Depression Screening 1950 Fall Risk Assessment 1950 Hepatitis C Screening 1950 Osteoporosis Screening-Bone Density Scan 1950 DTaP/Tdap/Td Vaccine (1 - Tdap) 1963 Hepatitis B Screening 1970 Pneumococcal vaccine 65+ (1 of 1 - PCV) 2002 Zoster Vaccine (1 of 2) 2002 Well Visit 65+ 2017 Breast Cancer Screening-Mammogram 03/07/2021 020 Influenza Vaccine (Season Ended) 2025 08/22/19 23 Procedures Procedure Name Priority Date/Time Associated Diagnosis Comments SCREENING MAMMOGRAM BILATERAL W JUSTIN 03/07/2020 12:41 PM CDT from Last 3 Months or Most Recently Relevant to Health Maintenance Results * Screening Mammogram Bilateral W Justin (03/07/2020 12:41 PM CDT) Anatomical Region Laterality Modality Breast Bilateral Mammography 03/07/2020 1:27 PM CDT Narrative 03/08/2020 10:07 AM CDT Patient Name: ASHLY GALVAN Ordering Dr: Maximo Archer DO, D.O.B: 1950 Exam Date: 03/07/20 1241 Age: 69 Sex: Female MR#: [id number] Loc: RADIOLOGY REPORT Order #[id number] [facility] Kera Bilat Screening 3D Signed - MG [...] age 40, based on guidelines of the [place] [employer] (ACR Practice Parameter for the Performance of Screening and Diagnostic Mammography) and [employer] [employer]. For women with an elevated risk of breast cancer, please refer to the ACR Practice Parameter for specific screening recommendations. The patient will be entered into a reminder system with a target due date of 1 year for her next screening exam. Electronically signed by: Jacinto kramer/eber:03/08/2020 10:07:21 Seismic Interpreter: Ruba Jimenez)(Antonette), [facility] letter sent: Normal Exam Reading location: BI-RADS: 1 Negative REPORT ELECTRONICALLY SIGNED IN OTHER VENDOR SYSTEM Resulting Agency Comment O Procedure Note Jacinto Bass MD - 03/08/2020 Patient Name: Macy GALVAN Dr: Maximo Archer DO D.O.B: 1950 Exam Date: 03/07/20 1241 Age: 69 Sex: Female MR#: [id number] Loc: RADIOLOGY REPORT Order #[id number] [facility] Kera Bilat Screening 3D Signed - MG [...] age 40, based on guidelines of the [place] [employer] (ACR Practice Parameter for the Performance of Screening and Diagnostic Mammography) and [place] [employer]. For women with an elevated risk of breast cancer, pleaserefer to the ACR Practice Parameter for specific screening recommendations. The patient will be entered into a reminder system with a target due dateof 1 year for her next screening exam. Electronically signed by: Jacinto kramer/eber:03/08/2020 10:07:21 Seismic Interpreter: Ruba Cochran (R)), [facility] letter sent: Normal Exam Reading location: BI-RADS: 1 Negative REPORT ELECTRONICALLY SIGNED IN OTHER VENDOR SYSTEM Maximo Archer DO IMG MAMMO PROCEDURES F inal Result from Last 3 Months or Most Recently Relevant to Health Maintenance Insurance [facility] MEDICARE ADVANTAGE Care Teams Treating Plant Supervisor Relationship Specialty Start Date End Date Yael Bailey MD [address] [place] [address] PCP - General Family Practice 08/16/23 Dann Vega MD 03/01/20
--- OUTSIDE RECORDS SUMMARY | 2025-02-21 10:32 | XMS_ITS | Clinical Summary ---
Author Organization [facility] Address [address] [address] Care Team Providers Care Fugitive Detective Name Role Phone Dann Vega MD Primary Care Provider [phone] Source Comments [facility],non-owned Affiliates and Associated Physician Practices is amultiple site organization consisting of ambulatory clinics and hospital sitesin [place], [place], [place] and [place]. This disclosure is being madepursuant to the Care Everywhere program and may not contain all information available regarding this patient. Last updated 18.[facility] Allergies Active Allergy Reactions Criticality Noted Date Comments Penicillins Other Low 10/13/2013 Possible allergy to pcn Social History Tobacco Use Types Packs/Day Years Used Date Smoking Tobacco: Never Alcohol Use Standard Drinks/Week Comments Yes 0 (1 standard drink = 0.6 oz pur e alcohol) Comments Unknown Sex and Gender Information Value Date Recorded Sex Assigned at Not on file Legal Sex Female 6:36 PM BROACHING MACHINE OPERATOR Gender Identity Not on file Sexual Orientation Not on file Last Filed Vital Signs Vital Sign Reading Time Taken Comments Blood Pressure 133/81 10/13/2013 12:32 PM BROACHING MACHINE OPERATOR Pulse 92 10/13/2013 12:32 PM BROACHING MACHINE OPERATOR Temperature 36.9 C (98.5 F) 10/13/2013 12:32 PM BROACHING MACHINE OPERATOR Respiratory Rate 15 10/13/2013 12:32 PM BROACHING MACHINE OPERATOR Oxygen Saturation 100% 10/13/2013 12:32 PM BROACHING MACHINE OPERATOR Inhaled Oxygen Concentration - - Weight 106.6 kg (235 lb) 10/26/2017 10:46 AM CDT Height 167.6 cm (5' 6) 10/26/2017 10:46 AM CDT Body Mass Index 37.93 10/26/2017 10:46 AM CDT Plan of Treatment Health Maintenance Due Date Last Done Comments BONE DENSITY TESTING 1950 COLOGUARD (AGES 45-75) - COL ON CA SCREENING 1950 COLON MONITORING 1950 COLONOSCOPY - COLON CA SCREENING 1952 CT COLONOGRAPHY - COLON CA SCREENING 1950 Colorectal Cancer Screening 1950 FIT - COLON CA SCREENING 1950 FLEX SIG - COLON CA SCREENING 1950 LIPID TESTING 1950 MAMMOGRAM 1950 HEPATITIS C SCREENING 09/30/1970 DTAP/TDAP/TD VACCINES (1 - Tdap) 1971 PNEUMOCOCCAL VACCINE 50+ (1 of 1 - PCV) 2002 ZOSTER VACCINE (1 of 2) 2002 COVID-19 VACCINE (1 - 2023-2 5 season) 2024 DEPRESSION SCREENING 08/09/2024 MEDICARE AWV CALENDAR YEAR 2024 INFLUENZA VACCINE (#1) 2025 Respiratory Syncytial Virus (RSV) Vaccine Pt: or over 60 yrs (1 - 1-dose 75+ series) 2027 HEPATITIS B VACCINE Aged Out No longe r eligible based on patient's age to complete this topic HIB VACCINE Aged Out No longer eligi ble based on patient's age to complete this topic HPV VACCINE Aged Out No longer eligi ble based on patient's age to complete this topic MENINGOCOCCAL (Group B) VACC INE SHARED DECISION-MAKING Aged Out No longer eligibl e based on patient's age to complete this topic MENINGOCOCCAL GROUPS A/C/Y/W VACCINE Aged Out No longer eligible b ased on patient's age to complete this topic Insurance [place] - [place] [facility] MANAGED MEDICARE ADV [facility] MANAGED MEDICARE ADV Care Teams Fugitive Detective Relationship Specialty Start Date End Date Dann Vega MD [address] [place] [id number] PCP - General Internal Medicine 09/13/17
--- OUTSIDE RECORDS SUMMARY | 2025-02-21 10:32 | XMS_ITS | Continuity of Care Document ---
Author Organization [facility] Address [address] [place] [address] Phone Care Team Providers Care Renderer Name Role Phone Maylin Rubio MD Unavailable Unavailable Allergies, Adverse Reactions, Alerts Substance Reaction Status Criticality PENICILLIN Itching and Hives(moderate) Active No Information Medications Medication Instructions Dosage Effective Dates (start - stop) Status Comments No Drug Therapy Prescribed Procedures Procedure Date ENDOMETRIAL BX +-ENDOCRV BX W/O DILAT SP X OFFICE OUTPT EST 25 MIN Urinalysis, Auto, w/o Scope COLLECTION OF VENOUS BLOOD BY VENIPUNCTU RE OFFICE OUTPT EST 25 MIN Alcohol and/or drug screening 6 OFFICE/OUTPATIENT VISIT, EST Urinalysis, Auto, w/o Scope Non-OB Ultrasound, Pelvic, Complete SMEAR, WET MOUNT, SALINE/INK SMEAR, WET MOUNT, SALINE/INK OFFICE/OUTPATIENT VISIT, EST Urinalysis, Auto, w/o Scope COLLECTION OF VENOUS BLOOD BY VENIPUNCTU RE PERIODIC COMPREHENSIVE PREVENTIVE MED RE E/M; ESTABLISHED PATIENT; 40-64 OFFICE/OUTPATIENT VISIT, EST Immun admin-adult or WO counseling - fir st vaccine/toxoid TDAP VACCINE 7 YR + IM COLLECTION OF VENOUS BLOOD BY VENIPUNCTU RE BLOOD COUNT; COMPLETE (CBC), AUTOMATED D IFF COMPRE METAB PANEL LIPID PANEL THYROID STIMULATING HORMONE (TSH) 1ST COMPRE PREV MED E/M NEW PT 40-64 Oct Alcohol and/or drug screening 6 Urinalysis, Auto, w/o Scope IAAD EIA HEP B SURF AG HEPATITIS C ANTIBODY; HIV-1 Antigen, W/HIV-1 & HIV-2 Antibody, Single Re COLLECTION OF VENOUS BLOOD BY VENIPUNCTU RE Disease management program; initial assessment and initiation of the program Screening Mammography, Bilateral 2014 OFFICE/OUTPATIENT VISIT, EST Alcohol and/or drug screening 5 Immun admin-adult or WO counseling - fir st vaccine/toxoid GLUCOSE; QUANTITATIVE, BLOOD (EXCEPT SANDEEP GENT STRIP) Quantity Not Sufficient/Test Not Perform juanita [facility] Use Only HEMOGLOBIN; GLYCOSYLATED (A1C) 15 COLLECTION OF CAPILLARY BLOOD SPECIMEN ( EG, FINGER, HEEL, EAR STICK) BLOOD COUNT; COMPLETE (CBC), AUTOMATED D IFF COLLECTION OF VENOUS BLOOD BY VENIPUNCTU RE FERRITIN THYROID STIMULATING HORMONE (TSH) CALCIFEDIOL (25-OH VITAMIN D-3) 015 CYANOCOBALAMIN (VITAMIN B-12); 15 HIV-1 Antigen, W/HIV-1 & HIV-2 Antibody, Single Re HEPATITIS C ANTIBODY; 1ST COMPRE PREV MED E/M NEW PT 40-64 Feb COLLECTION OF VENOUS BLOOD BY VENIPUNCTU RE Advance Directives Directive Yes / No Effective Date File Name No Information Encounters Encounter Description Practice Location Reason(s) For Visit Diagnoses Date Provider Providers Copied on Encounter [facility], [address], [place], [place], [address] , [place] tel:[phone] [facility] No Information 0 Joanne Carlisle. [address], [place], [place], [address], [place]. tel:[phone] Referring Provider: Maylin Rubio, [address], [place], [address] . tel:[phone] OFFICE OUTPT EST 25 MIN [facility], [address], [place], [place], [address] , [place] tel: [phone] [facility] emb (chief complaint) Leiomyoma of uterus, unspecifiedEnco unter for screening colonoscopyEnco unter for screening mammogram for Ca of breast 6 No Information OFFICE OUTPT EST 25 MIN [facility], [address], [place], [place], [address] , tel: [phone] [facility] Surgery Consult (chief complaint) Leiomyoma of uterus, unspecified 6 No Information OFFICE/OUTPATI ENT VISIT, EST [facility], [address], [place], [place], [address] , [place] tel: [phone] [facility] U/s Results (chief complaint) Leiomyoma of uterus, unspecifiedEncn tr for acetone recovery worker exam (general) (routine) w abnormal findings Apr-2 6 No Information [facility], [address], [place], [place], [address] , [place] tel: [phone] [facility] No Information 6 Tepe Amaris. [address], [place], [place], [address], [place]. tel:[phone] OFFICE/OUTPATI ENT VISIT, EST [facility], [address], [place], [place], [address] , [place] tel: [phone] [facility] Abdominal pain (chief complaint)D ischarge w/ odor (chief complaint) Pelvic and perineal painEncounter for screening for infections with a predominantly sexual mode of transmissionCan didiasis of vulva and vaginaEncntr for acetone recovery worker exam (general) (routine) w abnormal findings Sep-0 6 No Information PERIODIC COMPREHENSIVE PREVENTIVE MED REE/M; ESTABLISHED PATIENT; 40-64 [facility], [address], [place], [place], [address] , [place] tel: [phone] [facility] depression (chief complaint)P reventive exam (chief complaint)o besity (chief complaint)c oloscopy 3 years ago [place] (chief complaint) Encounter for general adult medical examination with abnormal findingsBody mass index (BMI) 37.0-37.9, adultObesityEnc ounter for screening for lipoid disordersEncoun ter for immunization 6 Joanne Carlisle. [address], [place], [place], [address], [place]. tel:[phone] Referring Provider: Maylin Rubio, [address], [place], [address] . tel:[phone] 1ST COMPRE PREV MED E/M NEW PT [facility], [address], [place], [place], [address] , tel: [phone] [facility] RLQ pelvic pain (chief complaint)a nnual exam (chief complaint) Encounter for gynecological examination (general) (routine) with abnormal findingsEncount er for screening for infections with a predominantly sexual mode of transmissionEnc ounter for screening mammogram for malignant neoplasm of breastEncounter for screening for malignant neoplasm of colonOther obesity due to excess caloriesBody mass index (BMI) 37.0-37.9, adultPelvic and perineal painEncounter for screening for other disorder 0 6 No Information [facility], [address], [place], [place], [address] , [place] tel: [phone] [facility] No Information 5 Management Case. [address], [place], [place], [address], [place]. tel:[phone] [facility], [address], [place], [place], [address] , [place] tel: [phone] [facility] No Information 5 Joanne Carlisle. [address], [place], [place], [address], [place]. tel:[phone] Referring Provider: Maylin Rubio [address], [place], [address] . tel:[phone] OFFICE/OUTPATI ENT VISIT, EST [facility], [address], [place], [place], [address] , tel: [phone] [facility] Preventive exam (chief complaint)A nxiety (chief complaint)n usese aid (chief complaint) ROUTINE MEDICAL EXAMAnxietyMorb id obesityInfluenz a vaccination neededFatigueSl eep apneaScreening mammogramScreen ing for alcoholism 5 Joanne Carlisle. [address], [place], [place], [address], . tel:[phone] Referring Provider: Maylin Rubio [address], [place], [address] . tel:[phone] 1ST COMPRE PREV MED E/M NEW PT 40-64 [facility], [address], [place], [place], [address] , tel: [phone] [facility] depression (chief complaint)h yperlipidem ia (chief complaint)p ap / mamogram uptodate (chief complaint)c olonioscopy 2 years (chief complaint) ROUTINE MEDICAL EXAMDepressionI nsomnia 4 Joanne Carlisle. [address], [place], [place], [address], . tel:[phone] Referring Provider: Maylin Rubio [address], [place], [address] . tel:[phone] Family History Family Member Type Diagnosis Age At Onset Problem (finding) No family history of Ca ncer, colon Problem (finding) No family history of Ca ncer, ovarian Problem (finding) No family history of Ca ncer, breast Immunizations Vaccine Date Status Comments Tdap administered Source: New Imm unization Record Influenza virus vaccine, injectable, quadrivalent, split virus, preservative free, 3 years or older Fluarix, Flulaval or Fluzone Quad administered Source: New Immuniza tion Record Payers Payer name Insurance type Covered constitution party ID Authoriza tion(s) No Information Social History Type Description Quantity Date Captured Comments Sex Female Smoking Status No Information Chief Complaint And Reason For Visit No Information Reason For Referral Reason For Referral No Information Plan Of Treatment Date Type Action Status Future Order: Radiology Order Sc reening Mammography, Bilateral, Digital (G0202), Ordered on: Ordered Future Order: Radiology Order No n-OB Ultrasound, Pelvic, Complete ([id number]), Ordered on: Ordered History Of Present Illness Encounter Date Complaint History Of Prese nt Illness emb 65 yr old here f or preop embxfibroid ut causing pressure and pain, no vbBTLpap 10/22 neg/negmammo-needs to be rescheduledcolonoscopy 3 years ago, nl per pt Surgery Consult 65 yr old woman here for surgical consultpap 10/22 neg/negmammo -has appt this monthEL, LSO for ectopicBTLCCKpt presented to [facility] with 3-4 mo h/o new pelvic pain and pressure, u/s done showing ut 10.4 x 7.8 x 7.5, multiple fibroids, largest 4 x 3 x 3, nl R ov, absent Lvol 316 gm, ems .7 cmnew dx to pt, no prev h/o fibroidspap 10/22 neg/negmammo 04/24 cat 1colonoscopy 3 years ago, recommend f/u 10 years U/s Results 65 yo here for u /s resultsseen 04/16, reported pelvic pain x 6 mos, intermittent cramping/throbbing, happens weeklyno VBgyn u/s @ [facility]: uterus 10.4 x 7.8 x 7.5 cm, emc 0.7 cm, multiple fibroids, largest 4.4 x 3.4 x 3.1 and 2.8 x 2.9 x 2.8 cmnml R ovaryh/o unilateral SO after ectopicdenies h/o fibroidspap 10/22 neg/negno h/o abn mmg 04/23 negcolonoscopy 3 yrs ago, rec. f/u in 10 yrs Discharge w/ odor 65 yo here for dischargec/o off-white discharge w/ odor x 1 month, thick, +itching, intermittentsame partner, condoms occ. also reports abd pain, menstrual cramps in my hips, intermittent, weeklyalso throbbing on lower left side h/o unilateral SO, unk reasonPMP, no VBpap 10/22 neg/negno h/o abn mmg 04/23 negcolonoscopy 3 yrs ago, rec. f/u in 10 yrs Abdominal pain Preventive exam Negative for: br east discharge, breast lump(s), breast pain and breast self exam.Postmenopausal: Type: natural. She does not take calcium. She does not take Vitamin D. She does drink alcohol. coloscopy 3 years ago [place] depression obesity Negative for: br east discharge, breast lump(s), breast pain and breast self exam.Postmenopausal: Type: natural. She does not take calcium. She does not take Vitamin D. She does drink alcohol. RLQ pelvic pain annual exam 65 yo here for n ew annual examPMP x 8 yrs, no VB c/o RLQ pain x 1 month, off and on, weekly, cramping, lasts 5 min, no meds denies constipation/diarrhea, BMs twice per day+SA, 1 partner, condoms occ.desires STI screen last pap 2013 neg no h/o abn mmg 04/23 negcolonoscopy 3 yrs ago, rec. f/u in 10 yrss/p flu vaccine Preventive exam Negative for: br east discharge, breast lump(s), breast pain and breast self exam.Postmenopausal. Additional information: long time ago seen by proveders forgetting appoinmnet . nusese aid Anxiety The first episod e occurred in 2013. The patient presents with decreased need for sleep, depressed mood, excessive worry and fatigue. The patient's risk factors include chronic illness and of a friend or loved one. The Anxiety is not with drug use or lack of sleep. The Anxiety is associated with irritability. The patient denies any chronic pain and headache. Additional information: anxious cannot relax wory about children feels deprrsed since / lives sohan. colonioscopy 2 years pap / mamogram uptodate hyperlipidemia depression This is a follow up visit. The first episode occurred in 2003. Related symptoms are uncontrolled. The patient presents with difficulty falling asleep and difficulty staying asleep but denies anxious/fearful thoughts, compulsive thoughts, feelings of invulnerability or increased energy. The patient's risk factors include of a friend or loved one and history of depression. The patient's risk factors exclude family history of anxiety, family history of bipolar disorder and victim of abuse or violence. The depression is aggravated by lack of sleep but not with alcohol use or conflict or stress. The depression is associated with irritability and weight gain. The patient denies any chronic pain, headache, nausea and sweating. Additional information: taking celexa 40 mg po qday / lost nsurance . lives alone 4 kids . not close him son donot come . drinks beer acctinlay , takes ambien not helping. Functional Status Date Functional Assessmen t No Information Medications Administered Medication Instructions Dosage Effective Dates (start - stop) Status Comments No Drug Therapy Prescribed Instructions Date Instruction Additional Infor mation Call if heavy bleedi ng 1 or more pads per hour Related to Leiomyoma of uterus, unspecified Discussed nutrition and increased physical activity Related to Leiomyoma of uterus, unspecified Call if heavy bleedi ng 1 or more pads per hour Related to Leiomyoma of uterus, unspecified Discussed nutrition and increased physical activity Related to Leiomyoma of uterus, unspecified Use Ibuprofen or hea t as needed for pain. Related to Leiomyoma of uterus, unspecified Monthly self-breast exams. Relat ed to Leiomyoma of uterus, unspecified Monthly self-breast exams. Relat ed to Pelvic and perineal pain Use condoms 100% of the time. Re lated to Pelvic and perineal pain Keep appointment for ultrasound. Related to Pelvic and perineal pain 1500 Kcal diet - ple ase calorie countExcerise at least 4 to 5 times per week for half hour.Drink fluids and avoid sodas or juice.Small portions of food with each meal. Avoid snacking. Avoid potato chips and junk food. Please make appoinmnet with data programmer Related to Body mass index (BMI) 37.0-37.9, adult Monthly self-breast exams. Relat ed to Encounter for gynecological examination (general) (routine) with abnormal findings Use condoms 100% of the time. Re lated to Encounter for screening for infections with a predominantly sexual mode of transmission Get a flu vaccine every year. 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
[2025-02-21 18:43] LABS: Alanine Aminotransferase 20 U/L (6-35); Albumin Level 4.1 g/dL (3.5-5.1); Alkaline Phosphatase 129 U/L (38-126); Anion Gap 5 mmol/L (4-12); Aspartate Amino Transferase 74 U/L (14-36); Bilirubin,Total 0.3 mg/dL (0.2-1.3); Blood Urea Nitrogen 12 mg/dL (7-17); Calcium 9.1 mg/dL (8.4-10.2); Carbon Dioxide 30 mmol/L (22-30); Chloride 105 mmol/L (98-107); Estimated Glomerular Filt Rate 49; Glucose 99 mg/dL (65-110); Potassium 4.0 mmol/L (3.4-5.0); Sodium 140 mmol/L (137-145); Total Protein 8.1 g/dL (6.3-8.2)
[2025-02-21 20:09] LABS: Hemoglobin A1C 6.2 % (<5.7)
== END 2025-02-21 10:19 | disposition home or self-care (01) ==
LOC: ANHGOSHLAB 10:19
PROVIDERS: PCP Family Medicine; Visit Provider Family Medicine
DX: E11.9 Type 2 diabetes mellitus without complications (principal); I10 Essential (primary) hypertension
CPT/HCPCS: 36415; 80053; 83036

== ENCOUNTER 2025-03-13 11:02 | Outpatient (CLI) | payer MEDICARE, SELFPAY ==
--- OUTSIDE RECORDS SUMMARY | 2025-03-13 11:32 | XMS_ITS | Clinical Summary ---
Author Organization [facility] Address [address] [place] [address] Care Team Providers Care Digital Media Strategist Name Role Phone Dann Vega MD Unavailable [phone] Yael Bailey MD Primary Care Provider [...] on file Legal Sex Female 7:54 PM LIFE ENRICHMENT SPECIALIST Gender Identity Not on file Sexual Orientation [...] Comments Blood Pressure 122/68 08/16/2023 2:36 PM LIFE ENRICHMENT SPECIALIST Pulse 89 08/16/2023 2:36 PM LIFE ENRICHMENT SPECIALIST Temperature 36.4 C (97.6 F) 01/17/2020 2:44 PM CDT Respiratory Rate - - Oxygen Saturation 95% 08/16/2023 2:36 PM LIFE ENRICHMENT SPECIALIST Inhaled Oxygen Concentration - - Weight 105.7 kg (233 lb) 08/16/2023 2:36 PM LIFE ENRICHMENT SPECIALIST Height 167.6 cm (5' 6) 08/16/2023 2:36 PM LIFE ENRICHMENT SPECIALIST Body Mass Index 37.61 08/16/2023 2:36 PM LIFE ENRICHMENT SPECIALIST Plan of Treatment Health Maintenance Due Date [...] Breast Cancer Screening-Mammogram 03/07/2021 020 Influenza Vaccine (#1) 2025 08/22/2022 Procedures Procedure Name Priority Date/Time Associated Diagnosis [...] Archer DO, D.O.B: 1950 Exam Date: 03/07/20 124 Age: 69 Sex: Female MR#: [id number] Loc: RADIOLOGY REPORT Order #[id number] [facility] Kera Bilat Screening 3D Signed - MG [...] age 40, based on guidelines of the [employer] (ACR Practice Parameter for the Performance of Screening and Diagnostic Mammography) and [employer]. For women with an elevated risk of breast cancer, please refer to the ACR Practice Parameter for specific screening recommendations. The patient will be entered into a reminder system with a target due date of 1 year for her next screening exam. Electronically signed by: Jacinto kramer/eber:03/08/2020 10:07:21 Missile Mechanic: Ruba Jimenez)(Antonette), [facility] letter sent: Normal Exam Reading location: BI-RADS: 1 Negative REPORT ELECTRONICALLY SIGNED IN OTHER VENDOR SYSTEM Resulting Agency Comment O Procedure Note Jacinto Bass MD - 03/08/2020 Patient Name: Macy GALVAN Dr: Maximo Archer DO D.O.B: 1950 Exam Date: 03/07/20 1241 Age: 69 Sex: Female MR#: [id number] Loc: RADIOLOGY REPORT Order #[id number] [facility] Kera Bilat Screening 3D Signed - MG [...] age 40, based on guidelines of the [employer] [employer] (ACR Practice Parameter for the Performance of Screening and Diagnostic Mammography) and [employer]. For women with an elevated risk of breast cancer, pleaserefer to the ACR Practice Parameter for specific screening recommendations. The patient will be entered into a reminder system with a target due dateof 1 year for her next screening exam. Electronically signed by: Jacinto kramer/eber:03/08/2020 10:07:21 Missile Mechanic: Ruba Cochran (R)), [facility] letter sent: Normal Exam Reading location: BI-RADS: 1 Negative REPORT ELECTRONICALLY SIGNED IN OTHER VENDOR SYSTEM Maximo Archer DO IMG MAMMO PROCEDURES F inal Result from Last 3 Months or Most Recently Relevant to Health Maintenance Insurance [facility] MEDICARE ADVANTAGE [facility] MEDICARE Address: [address] [address] Care Teams Digital Media Strategist Relationship Specialty Start Date End Date Yael Bailey MD [address] [facility] [address] [place] [address] PCP - General Family Practice 08/16/23 Dann Vega MD 03/01/20
--- OUTSIDE RECORDS SUMMARY | 2025-03-13 11:32 | XMS_ITS | Clinical Summary ---
Author Organization [facility] [employer] Address [address] [place] [address] Care Team Providers Care Oracle Fusion Middleware Architect Name Role Phone Dann Vega MD Primary Care Provider [phone] Source Comments [facility] [employer],non-owned Affiliates and Associated Physician Practices is amultiple site organization consisting of ambulatory clinics and hospital sitesin [place], [place], [place] and [place]. This disclosure is being madepursuant to the Care Everywhere program and may not contain all information available regarding this patient. Last updated 18.[facility] [employer] Allergies Active Allergy Reactions Criticality Noted Date [...] on file Legal Sex Female 6:36 PM WELDER PRODUCTION LINE COMBINATION Gender Identity Not on file Sexual Orientation Not on file Last Filed Vital Signs Vital Sign Reading Time Taken Comments Blood Pressure 133/81 10/13/2013 12:32 PM WELDER PRODUCTION LINE COMBINATION Pulse 92 10/13/2013 12:32 PM WELDER PRODUCTION LINE COMBINATION Temperature 36.9 C (98.5 F) 10/13/2013 12:32 PM WELDER PRODUCTION LINE COMBINATION Respiratory Rate 15 10/13/2013 12:32 PM WELDER PRODUCTION LINE COMBINATION Oxygen Saturation 100% 10/13/2013 12:32 PM WELDER PRODUCTION LINE COMBINATION Inhaled Oxygen Concentration - - Weight 106.6 [...] complete this topic Insurance MEDICAID - [place] [facility] MANAGED MEDICARE ADV [facility] MANAGED MEDICARE ADV Care Teams Oracle Fusion Middleware Architect Relationship Specialty Start Date End Date Dann Vega MD [address] [place] [id number] PCP - General Internal Medicine 09/13/17
--- OUTSIDE RECORDS SUMMARY | 2025-03-13 11:32 | XMS_ITS | Referral Summary ---
Author Organization [facility] Address [address] [place] [address] Care Team Providers Care Buffing Line Set Up Worker Name Role Phone Dann Vega MD Unavailable [phone] Yael Bailey MD Primary Care Provider [...] on file Legal Sex Female 7:54 PM DITCH INSPECTOR Gender Identity Not on file Sexual Orientation Not on file Last Filed Vital Signs Vital Sign Reading Time Taken Comments Blood Pressure 122/68 08/16/2023 2:36 PM DITCH INSPECTOR Pulse 89 08/16/2023 2:36 PM DITCH INSPECTOR Temperature 36.4 C (97.6 F) 01/17/2020 2:44 PM CDT Respiratory Rate - - Oxygen Saturation 95% 08/16/2023 2:36 PM DITCH INSPECTOR Inhaled Oxygen Concentration - - Weight 105.7 kg (233 lb) 08/16/2023 2:36 PM DITCH INSPECTOR Height 167.6 cm (5' 6) 08/16/2023 2:36 PM DITCH INSPECTOR Body Mass Index 37.61 08/16/2023 2:36 PM DITCH INSPECTOR Plan of Treatment Not on file Procedures [...] 03/07/20 1241 Age: 69 Sex: Female MR#: [id number] Loc: RADIOLOGY REPORT Order #[id number] [facility] Kera Bilat Screening 3D Signed - MG [...] age 40, based on guidelines of the [place] [employer] (ACR Practice Parameter for the Performance of Screening and Diagnostic Mammography) and [place] [employer]. For women with an elevated risk of breast cancer, please refer to the ACR Practice Parameter for specific screening recommendations. The patient will be entered into a reminder system with a target due date of 1 year for her next screening exam. Electronically signed by: Jacinto kramer/eber:03/08/2020 10:07:21 Stone Decorator: Ruba Cochran (R)), [facility] letter sent: Normal Exam Reading location: BI-RADS: 1 Negative REPORT ELECTRONICALLY SIGNED IN OTHER VENDOR SYSTEM Resulting Agency Comment O Procedure Note Jacinto Bass MD - 03/08/2020 Patient Name: COLEMacy Dr: Maximo Archer DO, D.O.B: 1950 Exam Date: 03/07/20 1241 Age: 69 Sex: Female MR#: [id number] Loc: RADIOLOGY REPORT Order #[id number] [facility] Kera Bilat Screening 3D Signed - MG [...] age 40, based on guidelines of the [place] [employer] (ACR Practice Parameter for the Performance of Screening and Diagnostic Mammography) and [place] [employer]. For women with an elevated risk of breast cancer, pleaserefer to the ACR Practice Parameter for specific screening recommendations. The patient will be entered into a reminder system with a target due dateof 1 year for her next screening exam. Electronically signed by: Jacinto Schwarz rl/eber:03/08/2020 10:07:21 Stone Decorator: Ruba Jimenez)(Antonette), [facility] letter sent: Normal Exam Reading location: BI-RADS: 1 Negative REPORT ELECTRONICALLY SIGNED IN OTHER VENDOR SYSTEM Maximo Archer DO IMG MAMMO PROCEDURES F inal Result from Last 3 Months or Most Recently Relevant to Health Maintenance Insurance [facility] MEDICARE ADVANTAGE Care Teams Buffing Line Set Up Worker Relationship Specialty Start Date End Date Yael Bailey MD [address] [facility] [address] [place] [address] PCP - General Family Practice 08/16/23 Dann Vega MD 03/01/20
[2025-03-13 19:17] LABS: Alanine Aminotransferase 20 U/L (6-35); Albumin Level 4.2 g/dL (3.5-5.1); Alkaline Phosphatase 139 U/L (38-126); Anion Gap 5 mmol/L (4-12); Aspartate Amino Transferase 47 U/L (14-36); Bilirubin,Total 0.4 mg/dL (0.2-1.3); Blood Urea Nitrogen 9 mg/dL (7-17); Calcium 9.0 mg/dL (8.4-10.2); Carbon Dioxide 30 mmol/L (22-30); Chloride 103 mmol/L (98-107); Estimated Glomerular Filt Rate 54; Glucose 119 mg/dL (65-110); Potassium 4.5 mmol/L (3.4-5.0); Sodium 138 mmol/L (137-145); Total Protein 8.1 g/dL (6.3-8.2)
== END 2025-03-13 11:03 | disposition home or self-care (01) ==
LOC: ANHGOSHLAB 11:04
PROVIDERS: PCP Family Medicine; Visit Provider Family Medicine
DX: N28.9 Disorder of kidney and ureter, unspecified (principal); R74.01 Elevation of levels of liver transaminase levels
CPT/HCPCS: 36415; 80053

== ENCOUNTER 2025-03-29 10:45 | Outpatient (CLI) | payer MEDICARE, SELFPAY ==
--- OUTSIDE RECORDS SUMMARY | 2025-03-29 11:29 | XMS_ITS | Clinical Summary ---
Author Organization [facility] at the Medical Office Building Address [address] [place] [address] Care Team Providers Care It Field Technician Name Role Phone Dann Vega MD Unavailable [phone] Yael Bailey MD Primary Care Provider [...] on file Legal Sex Female 7:54 PM EXECUTIVE TEAM LEADER Gender Identity Not on file Sexual Orientation [...] Comments Blood Pressure 122/68 08/16/2023 2:36 PM EXECUTIVE TEAM LEADER Pulse 89 08/16/2023 2:36 PM EXECUTIVE TEAM LEADER Temperature 36.4 C (97.6 F) 01/17/2020 2:44 PM CDT Respiratory Rate - - Oxygen Saturation 95% 08/16/2023 2:36 PM EXECUTIVE TEAM LEADER Inhaled Oxygen Concentration - - Weight 105.7 kg (233 lb) 08/16/2023 2:36 PM EXECUTIVE TEAM LEADER Height 167.6 cm (5' 6) 08/16/2023 2:36 PM EXECUTIVE TEAM LEADER Body Mass Index 37.61 08/16/2023 2:36 PM EXECUTIVE TEAM LEADER Plan of Treatment Health Maintenance Due Date [...] 03/07/20 124 Age: 69 Sex: Female MR#: [id number] Loc: RADIOLOGY REPORT Order #[id number] [facility] Kera Bilat Screening 3D Signed - MG [...] age 42, based on guidelines of the [place] [employer] (ACR Practice Parameter for the Performance of Screening and Diagnostic Mammography) and [place] [employer]. For women with an elevated risk of breast cancer, please refer to the ACR Practice Parameter for specific screening recommendations. The patient will be entered into a reminder system with a target due date of 1 year for her next screening exam. Electronically signed by: Jacinto kramer/eber:03/08/2020 10:07:21 Extension Edger: Ruba Jimenez)(Antonette), [facility] letter sent: Normal Exam Reading location: BI-RADS: 1 Negative REPORT ELECTRONICALLY SIGNED IN OTHER VENDOR SYSTEM Resulting Agency Comment O Procedure Note Jacinto Bass MD - 03/08/2020 Patient Name: Macy GALVAN Dr: Maximo Archer DO D.O.B: 1950 Exam Date: 03/07/20 1241 Age: 69 Sex: Female MR#: [id number] Loc: RADIOLOGY REPORT Order #[id number] [facility] Kera Bilat Screening 3D Signed - MG [...] age 42, based on guidelines of the [place] [employer] (ACR Practice Parameter for the Performance of Screening and Diagnostic Mammography) and [place] [employer]. For women with an elevated risk of breast cancer, pleaserefer to the ACR Practice Parameter for specific screening recommendations. The patient will be entered into a reminder system with a target due dateof 1 year for her next screening exam. Electronically signed by: Jacinto kramer/eber:03/08/2020 10:07:21 Extension Edger: Ruba Cochran (R)), [facility] letter sent: Normal Exam Reading location: BI-RADS: 1 Negative REPORT ELECTRONICALLY SIGNED IN OTHER VENDOR SYSTEM Maximo Archer DO IMG MAMMO PROCEDURES F inal Result from Last 3 Months or Most Recently Relevant to Health Maintenance Insurance [facility] MEDICARE ADVANTAGE Care Teams It Field Technician Relationship Specialty Start Date End Date Yael Bailey MD [address] [address] [address] [address] [place] [address] PCP - General Family Practice 08/16/23 Dann Vega MD 03/01/20
--- OUTSIDE RECORDS SUMMARY | 2025-03-29 11:29 | XMS_ITS | Clinical Summary ---
Author Organization [facility] Address [address] [place] [address] Care Team Providers Care Incinerator Attendant Name Role Phone Dann Vega MD Primary Care Provider [phone] Source Comments [facility],non-owned Affiliates and Associated Physician Practices is amultiple site organization consisting of ambulatory clinics and hospital sitesin [place], [place], [place] and [place]. This disclosure is being madepursuant to the Care Everywhere program and may not contain all information available regarding this patient. Last updated 18.[facility] Allergies Active Allergy Reactions Criticality Noted Date [...] on file Legal Sex Female 6:36 PM POULTRY OFFAL ICER Gender Identity Not on file Sexual Orientation Not on file Last Filed Vital Signs Vital Sign Reading Time Taken Comments Blood Pressure 133/81 10/13/2013 12:32 PM POULTRY OFFAL ICER Pulse 92 10/13/2013 12:32 PM POULTRY OFFAL ICER Temperature 36.9 C (98.5 F) 10/13/2013 12:32 PM POULTRY OFFAL ICER Respiratory Rate 15 10/13/2013 12:32 PM POULTRY OFFAL ICER Oxygen Saturation 100% 10/13/2013 12:32 PM POULTRY OFFAL ICER Inhaled Oxygen Concentration - - Weight 106.6 [...] complete this topic Insurance [place] - [place] [facility] MANAGED MEDICARE ADV [facility] MANAGED MEDICARE ADV Care Teams Incinerator Attendant Relationship Specialty Start Date End Date Dann Vega MD [address] [place] [id number] PCP - General Internal Medicine 09/13/17
[2025-03-29 12:54] LABS: Hematocrit 38.0 % (37.0-47.0); Hemoglobin 12.5 g/dL (12.0-15.0); Immature Granulocyte Percent A 0.3 % (0-0.5); Lymphocytes Absolute Auto 2.87 K/mm3 (0.9-3.2); Mean Corpuscular HGB Conc 32.9 g/dl (32-36); Mean Corpuscular Hemoglobin 29.7 pg (26-34); Mean Corpuscular Volume 90.3 fl (80-100); Nucleated Red Blood Cells Absolute Auto 0.000 K/mm3 (0.0-0.012); Nucleated Red Blood Cells Perc 0.0 % (0.0-0.2); Platelet Count Result 236 k/mm3 (150-375); Red Blood Count 4.21 M/mm3 (4.2-5.4); White Blood Count 6.1 K/mm3 (4.5-10.0)
[2025-03-29 13:04] LABS: Add Urine Microscopic? YES; Appearance Urine Cloudy (Clear); Glucose Urine UA Negative (Negative); Leukocyte Esterase Ur Trace LEU/UL (Negative); Nitrate Urine Negative (Negative); Non Pathogenic Casts 0-2; Specific Grav Ur 1.007 (1.001-1.035)
[2025-03-29 13:11] LABS: Alanine Aminotransferase 18 U/L (6-35); Albumin Level 4.4 g/dL (3.5-5.1); Alkaline Phosphatase 145 U/L (38-126); Anion Gap 2 mmol/L (4-12); Aspartate Amino Transferase 61 U/L (14-36); Bilirubin,Total 0.4 mg/dL (0.2-1.3); Blood Urea Nitrogen 10 mg/dL (7-17); Calcium 9.1 mg/dL (8.4-10.2); Carbon Dioxide 31 mmol/L (22-30); Chloride 105 mmol/L (98-107); Estimated Glomerular Filt Rate 56; Glucose 99 mg/dL (65-110); Potassium 4.7 mmol/L (3.4-5.0); Sodium 138 mmol/L (137-145); Total Protein 8.7 g/dL (6.3-8.2)
== END 2025-03-29 10:46 | disposition home or self-care (01) ==
PROVIDERS: PCP Family Medicine; Visit Provider Nurse Practitioner Family
DX: R31.9 Hematuria, unspecified (principal); R35.0 Frequency of micturition
CPT/HCPCS: 36415; 80053; 81001; 85025

== ENCOUNTER 2025-04-13 09:58 | Outpatient (CLI) | payer MEDICARE, SELFPAY ==
--- OUTSIDE RECORDS SUMMARY | 2025-04-13 10:11 | XMS_ITS | Clinical Summary ---
Author Organization [facility] [address] at the Medical Office Building Address [address] [place] [address] Care Team Providers Care Pile Driver Engineer Name Role Phone Dann Vega MD Unavailable [phone] Yael Bailey MD Primary Care Provider [...] on file Legal Sex Female 7:54 PM CASTING OPERATOR Gender Identity Not on file Sexual [...] Comments Blood Pressure 122/68 08/16/2023 2:36 PM CASTING OPERATOR Pulse 89 08/16/2023 2:36 PM CASTING OPERATOR Temperature 36.4 C (97.6 F) 01/17/2020 2:44 PM CDT Respiratory Rate - - Oxygen Saturation 95% 08/16/2023 2:36 PM CASTING OPERATOR Inhaled Oxygen Concentration - - Weight 105.7 kg (233 lb) 08/16/2023 2:36 PM CASTING OPERATOR Height 167.6 cm (5' 6) 08/16/2023 2:36 PM CASTING OPERATOR Body Mass Index 37.61 08/16/2023 2:36 PM CASTING OPERATOR Plan of Treatment Health Maintenance Due Date [...] 03/07/20 124 Age: 69 Sex: Female MR#: [id number] Loc: RADIOLOGY REPORT Order #[id number] [facility] Kera Bilat Screening 3D Signed - [...] age 42, based on guidelines of the [place] [employer] (ACR Practice Parameter for the Performance of Screening and Diagnostic Mammography) and [place] [employer]. For women with an elevated risk of breast cancer, please refer to the ACR Practice Parameter for specific screening recommendations. The patient will be entered into a reminder system with a target due date of 1 year for her next screening exam. Electronically signed by: Jacinto kramer/eber:03/08/2020 10:07:21 Reporting Lead: Ruba Jimenez)(Antonette), [facility] letter sent: Normal Exam Reading location: BI-RADS: 1 Negative REPORT ELECTRONICALLY SIGNED IN OTHER VENDOR SYSTEM Resulting Agency Comment O Procedure Note Jacinto Bass MD - 03/08/2020 Patient Name: Macy GALVAN Dr: Maximo Archer DO D.O.B: 1950 Exam Date: 03/07/20 1241 Age: 69 Sex: Female MR#: [id number] Loc: RADIOLOGY REPORT Order #[id number] [facility] Kera Bilat Screening 3D Signed - [...] age 42, based on guidelines of the [place] [employer] (ACR Practice Parameter for the Performance of Screening and Diagnostic Mammography) and [place] [employer]. For women with an elevated risk of breast cancer, pleaserefer to the ACR Practice Parameter for specific screening recommendations. The patient will be entered into a reminder system with a target due dateof 1 year for her next screening exam. Electronically signed by: Jacinto kramer/eber:03/08/2020 10:07:21 Reporting Lead: Ruba Cochran (R)), [facility] letter sent: Normal Exam Reading location: BI-RADS: 1 Negative REPORT ELECTRONICALLY SIGNED IN OTHER VENDOR SYSTEM Maximo Archer DO IMG MAMMO PROCEDURES F inal Result from Last 3 Months or Most Recently Relevant to Health Maintenance Insurance [facility] MEDICARE ADVANTAGE Care Teams Pile Driver Engineer Relationship Specialty Start Date End Date Yael Bailey MD [address] [facility] [address] [place] [address] PCP - General Family Practice 08/16/23 Dann Vega MD 03/01/20
--- OUTSIDE RECORDS SUMMARY | 2025-04-13 10:11 | XMS_ITS | Clinical Summary ---
Author Organization [facility] Address [address] [place] [address] Care Team Providers Care Pressure Washer Name Role Phone Dann Vega MD Primary Care Provider [phone] Source Comments [facility],non-owned Affiliates and Associated Physician Practices is amultiple site organization consisting of ambulatory clinics and hospital sitesin [place], [place], [place] and [place]. This disclosure is being madepursuant to the Care Everywhere program and may not contain all information available regarding this patient. Last updated 18.[facility] Allergies Active Allergy Reactions Criticality Noted Date [...] on file Legal Sex Female 6:36 PM SIGNAL TESTER Gender Identity Not on file Sexual Orientation Not on file Last Filed Vital Signs Vital Sign Reading Time Taken Comments Blood Pressure 133/81 10/13/2013 12:32 PM SIGNAL TESTER Pulse 92 10/13/2013 12:32 PM SIGNAL TESTER Temperature 36.9 C (98.5 F) 10/13/2013 12:32 PM SIGNAL TESTER Respiratory Rate 15 10/13/2013 12:32 PM SIGNAL TESTER Oxygen Saturation 100% 10/13/2013 12:32 PM SIGNAL TESTER Inhaled Oxygen Concentration - - Weight 106.6 [...] 2002 ZOSTER VACCINE (1 of 2) 2002 DEPRESSION SCREENING 08/09/2024 MEDICARE AWV CALENDAR YEAR 2024 COVID-19 VACCINE (1 - 2023-2 5 season) 2025 INFLUENZA VACCINE (#1) 2025 Respiratory Syncytial Virus [...] complete this topic Insurance [place] - [place] [facility] MANAGED MEDICARE ADV [facility] MANAGED MEDICARE ADV Care Teams Pressure Washer Relationship Specialty Start Date End Date Dann Vega MD [address] [place] [phone] PCP - General Internal Medicine 09/13/17
[2025-04-13 12:16] LABS: Add Urine Microscopic? NO; Appearance Urine Clear (Clear); Glucose Urine UA Negative (Negative); Leukocyte Esterase Ur Negative LEU/UL (Negative); Nitrate Urine Negative (Negative); Specific Grav Ur 1.008 (1.001-1.035)
== END 2025-04-13 09:59 | disposition home or self-care (01) ==
LOC: ANHGOSHLAB 09:59
PROVIDERS: PCP Family Medicine; Visit Provider Nurse Practitioner Family
DX: R31.9 Hematuria, unspecified (principal)
CPT/HCPCS: 81003

== ENCOUNTER 2025-06-18 13:21 | Outpatient (CLI) | payer MEDICARE, SELFPAY ==
--- OUTSIDE RECORDS SUMMARY | 2025-06-18 13:34 | XMS_ITS | Clinical Summary ---
Author Organization [facility] at the Medical Office Building Address [address] [place] [address] Care Team Providers Care Guard Immigration Name Role Phone Dann Vega MD Unavailable [phone] Yael Bailey MD Primary Care Provider [...] on file Legal Sex Female 7:54 PM ELECTRICIAN RESEARCH Gender Identity Not on file Sexual Orientation [...] Comments Blood Pressure 122/68 08/16/2023 2:36 PM ELECTRICIAN RESEARCH Pulse 89 08/16/2023 2:36 PM ELECTRICIAN RESEARCH Temperature 36.4 C (97.6 F) 01/17/2020 2:44 PM CDT Respiratory Rate - - Oxygen Saturation 95% 08/16/2023 2:36 PM ELECTRICIAN RESEARCH Inhaled Oxygen Concentration - - Weight 105.7 kg (233 lb) 08/16/2023 2:36 PM ELECTRICIAN RESEARCH Height 167.6 cm (5' 6) 08/16/2023 2:36 PM ELECTRICIAN RESEARCH Body Mass Index 37.61 08/16/2023 2:36 PM ELECTRICIAN RESEARCH Plan of Treatment Health Maintenance Due Date [...] 03/07/20 124 Age: 69 Sex: Female MR#: [id number] Loc: RADIOLOGY REPORT Order #[id number] [facility] Kera Bilat Screening 3D Signed [...] age 42, based on guidelines of the [place] [employer] (ACR Practice Parameter for the Performance of Screening and Diagnostic Mammography) and [place] [employer]. For women with an elevated risk of breast cancer, please refer to the ACR Practice Parameter for specific screening recommendations. The patient will be entered into a reminder system with a target due date of 1 year for her next screening exam. Electronically signed by: Jacinto kramer/eber:03/08/2020 10:07:21 [place]: Ruba Jimenez)(Antonette), [facility] letter sent: Normal Exam Reading location: BI-RADS: 1 Negative REPORT ELECTRONICALLY SIGNED IN OTHER VENDOR SYSTEM Resulting Agency Comment O Procedure Note Jacinto Bass MD - 03/08/2020 Patient Name: Macy GALVAN Dr: Maximo Archer DO D.O.B: 1950 Exam Date: 03/07/20 1241 Age: 69 Sex: Female MR#: [id number] Loc: RADIOLOGY REPORT Order #[id number] [facility] Kera Bilat Screening 3D Signed [...] age 42, based on guidelines of the [place] [employer] (ACR Practice Parameter for the Performance of Screening and Diagnostic Mammography) and [place] [employer]. For women with an elevated risk of breast cancer, pleaserefer to the ACR Practice Parameter for specific screening recommendations. The patient will be entered into a reminder system with a target due dateof 1 year for her next screening exam. Electronically signed by: Jacinto kramer/eber:03/08/2020 10:07:21 [place]: Ruba Cochran (R)), [facility] letter sent: Normal Exam Reading location: BI-RADS: 1 Negative REPORT ELECTRONICALLY SIGNED IN OTHER VENDOR SYSTEM Maximo Archer DO IMG MAMMO PROCEDURES F inal Result from Last 3 Months or Most Recently Relevant to Health Maintenance Insurance [facility] MEDICARE ADVANTAGE Care Teams Guard Immigration Relationship Specialty Start Date End Date Yael Bailey MD [address] [facility] [address] [place] [address] PCP - General Family Practice 08/16/23 Dann Vega MD 03/01/20
--- OUTSIDE RECORDS SUMMARY | 2025-06-18 13:34 | XMS_ITS | Clinical Summary ---
Author Organization [facility] Address [address] [place] [address] Care Team Providers Care Fruit Vendor Name Role Phone Dann Vega MD Primary Care Provider [phone] Source Comments [facility],non-owned Affiliates and Associated Physician Practices is amultiple site organization consisting of ambulatory clinics and hospital sitesin [place], [place], [place] and [place]. This disclosure is being madepursuant to the Care Everywhere program and may not contain all information available regarding this patient. Last updated 18.[facility] Allergies Active Allergy Reactions Criticality Noted Date [...] on file Legal Sex Female 6:36 PM FOAM GUN OPERATOR Gender Identity Not on file Sexual Orientation Not on file Last Filed Vital Signs Vital Sign Reading Time Taken Comments Blood Pressure 133/81 10/13/2013 12:32 PM FOAM GUN OPERATOR Pulse 92 10/13/2013 12:32 PM FOAM GUN OPERATOR Temperature 36.9 C (98.5 F) 10/13/2013 12:32 PM FOAM GUN OPERATOR Respiratory Rate 15 10/13/2013 12:32 PM FOAM GUN OPERATOR Oxygen Saturation 100% 10/13/2013 12:32 PM FOAM GUN OPERATOR Inhaled Oxygen Concentration - - Weight [...] complete this topic Insurance [place] - [place] [facility] MANAGED MEDICARE ADV [facility] MANAGED MEDICARE ADV Care Teams Fruit Vendor Relationship Specialty Start Date End Date Dann Vega MD [address] [place] [phone] PCP - General Internal Medicine 09/13/17
[2025-06-18 19:14] LABS: Influenza A QL RT-PCR Negative (Negative); Influenza B QL RT-PCR Negative (Negative); RSV RNA, RT-PCR Negative (Negative); SARS-CoV-2 RNA PCR Negative (Negative)
== END 2025-06-18 13:22 | disposition home or self-care (01) ==
PROVIDERS: PCP Family Medicine; Visit Provider Family Medicine
DX: J06.9 Acute upper respiratory infection, unspecified (principal)
CPT/HCPCS: 87637